=== PATIENT | female | born 1985 | race Caucasian/White ===

== ENCOUNTER 2018-06-11 14:33 | Emergency (ER) | payer BC, SELFPAY ==
[2018-06-11 14:55] VITALS: BP 154/94; PULSE 84; RESP 15; TEMP 36.9; O2SAT 100; BMI 37.6
--- NOTE | 2018-06-11 15:10 | PC.NURSE ---
Has a history of PIH with this last . Pt was induced on 37wk EGA due to PIH and now post day 9. Pt has no hx of HTN prepregnancy or was on medication. Pt reports some YU, tingling on fingers/hands, denies vision change, N-V, abd pain.
[2018-06-11 15:31] VITALS: BP 148/81; PULSE 87; RESP 18; O2SAT 97
--- NOTE | 2018-06-11 15:36 | ED_ITS ---
HPI - General Adult General Chief complaint: Hypertension Stated complaint: GESTESTIONAL HYPERTENTION SYMPTOMS Time Seen by Provider: 06/11/18 15:25 Source: patient Mode of arrival: ambulatory Limitations: no limitations History of Present Illness HPI narrative: patient is a 32-year-old female who presents 6 days with elevated blood pressure. She says that she was induced at 37 weeks for elevated blood pressure. His she had an uncomplicated delivery. and she says her blood pressure was slowly coming back down. However she was taking it at home and monitoring only when she was symptomatic and it seems to be elevating. She feels little dizzy lightheaded numbness and tingling in her hands. No chest pain or shortness of breath no abdominal pain. Related Data Allergies Allergy/AdvReac Type Severity Reaction Status Date / Time No Known Drug Allergies Allergy Verified 06/11/18 14:55 Review of Systems Review of Systems ROS Unobtainable: All systems reviewed & are unremarkable except as noted in HPI and below Constitutional Denies chills, Denies fever(s), Denies lethargy and Denies weakness Cardiovascular Denies chest pain, Denies irregular heart rhythm, Reports lightheadedness, Denies palpitations, Denies dyspnea, Denies dyspnea on exertion and Denies orthopnea Respiratory Denies cough, Denies dyspnea, Denies dyspnea on exertion and Denies wheezing Gastrointestinal Gastrointestinal: Denies abdominal pain, Denies change in bowel habits, Denies diarrhea, Denies nausea and Denies vomiting Genitourinary Denies hematuria, Denies flank pain, Denies urinary incontinence and Denies urinary urgency Musculoskeletal Denies back pain, Denies muscle weakness, Denies numbness and Denies tingling Integumentary/Breasts Denies pruritus, Denies erythema, Denies rash and Denies wounds Neurologic Denies numbness, Denies tingling and Denies weakness Endocrine Denies palpitations Allergic/Immunologic Denies wheezing PFSH Social History Smoking Status: Unknown if ever smoked Social History Smoking Status: Unknown if ever smoked Exam Initial Vital Signs Initial Vital Signs: Vital Signs Temperature 98.4 F 06/11/18 14:55 Pulse Rate 84 06/11/18 14:55 Respiratory Rate 15 06/11/18 14:55 Blood Pressure 154/94 H 06/11/18 14:55 Pulse Oximetry 100 06/11/18 14:55 GENERAL: well-appearing female no acute distress HEENT: Head atraumatic,EOMI, pupils reactive, CARDIOVASCULAR: Regular rate and rhythm without murmurs, rubs or gallops. RESPIRATORY: Breath sounds equal bilaterally, no wheezes rales or rhonchi. ABDOMEN: Soft, nontender. Normoactive bowel sounds all 4 quadrants. No guarding or rebound. EXTREMITIES: Normal range of motion, no clubbing or edema. Neurovascularly intact NEUROLOGICAL: Alert and oriented x4.Normal gait and speech. Cranial nerves II through XII grossly intact. SKIN: Warm, dry, no laceration, no petechiae, no rashes or lesions. Course Orders Ordered: Discontinued Medications Sodium Chloride (Normal Saline 0.9%) 1,000 mls @ 1,000 mls/hr IV CONT HANDY Last Infusion: 06/11/18 17: Dose: 0 mls/hr Admin: 06/11/18 15:50 Dose: 1,000 mls/hr Vital Signs - 8 hr 06/11/18 14:55 06/11/18 15:31 06/11/18 16:00 Temperature 98.4 F Pulse Rate 84 87 69 Respiratory Rate 15 18 15 Blood Pressure 154/94 H Blood Pressure [Right Arm] 148/81 H 142/78 H Pulse Oximetry 100 97 97 06/11/18 16:30 06/11/18 17:30 Temperature Pulse Rate 77 80 Respiratory Rate 16 15 Blood Pressure Blood Pressure [Right Arm] 124/68 132/79 Pulse Oximetry 97 99 Medical Decision Making Lab Data Lab results reviewed: Yes I reviewed the patient's lab results. Result diagrams: 06/11/18 15:53 06/11/18 15:53 Lab Results 06/11/18 06/11/18 06/11/18 Range/Units 15:01 15:53 15:53 WBC 6.3 (4.5-11.0) X10^3/uL RBC 4.00 (4.0-5.2) X10^6/uL Hgb 11.4 L (12.0-16.0) g/dL Hct 35.0 L (36-46) % MCV 87.5 (80-100) fL MCH 28.6 (26-34) PG MCHC 32.7 (30-36) % RDW 13.1 (11.6-14.8) % Plt Count 196 (150-400) X10^3/uL Neut % (Auto) 66.5 (50-75) % Lymph % (Auto) 23.4 L (25-40) % [place] % (Auto) 6.3 (3-14) % Eos % (Auto) 3.1 (2-4) % Baso % (Auto) 0.7 (0-2) % Neut # (Auto) 4200 (3781-3758) /uL Lymph # (Auto) 1500 (4733-3114) /uL [place] # (Auto) 400 (0-900) /uL Eos # (Auto) 200 (0-450) /uL Baso # (Auto) 0 (0-100) /uL Sodium 141 (137-145) mmol/L Potassium 3.6 (3.4-5.1) mmol/L Chloride 105 (98-107) mmol/L Carbon Dioxide 24 (22-32) mmol/L BUN 11 (7-17) mg/dL Creatinine 0.80 (0.52-1.04) mg/dL Estimated GFR > 60.0 (>60) mL/min BUN/Creatinine Ratio 13.8 (6-22) Glucose 88 (70-100) mg/dL Calcium 9.2 (8.4-10.2) mg/dL Total Bilirubin 0.3 (0.2-1.3) mg/dL AST 28 (14-36) IU/L ALT 32 (9-52) IU/L Alkaline Phosphatase 91 (38-126) U/L Total Protein 7.7 (6.3-8.2) g/dL Albumin 4.3 (3.5-5.0) g/dL Globulin 3.4 (1.7-4.1) g/dL Albumin/Globulin Ratio 1.3 (1.0-2.8) Lipase 85 (23-300) U/L Urine Color Yellow Urine Appearance Clear Urine pH 6.5 (4.5-8.0) Ur Specific [place] <1.005 (1.000-1.035) Urine Protein Negative (Negative) Urine Glucose (UA) Negative (Negative) g/dL Urine Ketones Negative (NEGATIVE) Urine Occult Blood 2+ H (Negative) Urine Nitrate Negative (Negative) Urine Bilirubin Negative (NEGATIVE) Urine Urobilinogen Normal (0.2) E.U./dL Ur Leukocyte Esterase Negative (NEGATIVE) Urine RBC 0-1/hpf (0-5/HPF) Urine WBC None seen (0-5/HPF) Urine Bacteria None seen (None) Ur Culture Indicated? Cult not indicated Urine Dip Bedside Urine Glucose Negative Bedside Urine Bilirubin - Negative Bedside Urine Ketone - Negative Urine Specific [place] 1.015 Bedside Urine Occult Blood ++ Bedside Urine pH 6.0 Bedside Urine Protein - Negative Bedside Urine Urobilinogen - Negative Bedside Urine Nitrite - Negative Bedside Urine Leukocytes - Negative Esterase Point of care testing: Urine Dip Bedside Urine Glucose Negative Bedside Urine Bilirubin - Negative Bedside Urine Ketone - Negative Urine Specific [place] 1.015 Bedside Urine Occult Blood ++ Bedside Urine pH 6.0 Bedside Urine Protein - Negative Bedside Urine Urobilinogen - Negative Bedside Urine Nitrite - Negative Bedside Urine Leukocytes - Negative Esterase ECG Data Attestation: I personally reviewed and interpreted this ECG as follows: Prior ECG tracings: not available for review Interpretation: Normal sinus rhythm rate [address] changes no T-wave inversions [place] interval 152 MDM Narrative Medical decision making narrative: patient's blood pressure has decreased while in the ED. At this time she is asymptomatic with an acceptable blood pressure recommend following it and her monitoring at home with home BP cuff. I discussed this with her and how to take it and when to take it. At this time appropriate for discharge. Discharge Plan Departure Patient Disposition: Home Clinical Impression: Feared complaint without diagnosis Discharge Date/Time: 06/11/18 17:35 Interventions: ED Discharge Assessment Last Done: 06/11/18 17:43 Instructions: DI for High Blood Pressure Activity Restrictions/Additional Instructions: *You have been diagnosed with elevated blood pressure has resolved while in the ER *What to do: take blood pressure once a day same time every day. monitor in ride it down. If blood pressure continues to be elevated over 140/90 then return to ED *Continue to take medications as directed *Follow up with your primary care provider in 2-3 days *Return to ER if you should have chest pain lightheadedness headache persistently elevated blood pressure or any new, worsening or concerning symptoms
[2018-06-11] MEDS: SODIUM CHLORIDE 0.9% 1,000 ML 1000 ML IV (15:50)
[2018-06-11 16:00] VITALS: BP 142/78; PULSE 69; RESP 15; O2SAT 97
[2018-06-11 16:00] LABS: Add Manual Diff / Slide Review NO; Basophils Absolute Auto 0 /uL (0-100); Basophils Percent Auto 0.7 % (0-2); Eosinophils Absolute Auto 200 /uL (0-450); Eosinophils Percent Auto 3.1 % (2-4); Hemoglobin 11.4 g/dL (12.0-16.0); Lymphocytes Absolute Auto 1500 /uL (1100-4500); Lymphocytes Percent Auto 23.4 % (25-40); Mean Corpuscular HGB Conc 32.7 % (30-36); Mean Corpuscular Hemoglobin 28.6 PG (26-34); Mean Corpuscular Volume 87.5 fL (80-100); Monocytes Absolute Auto 400 /uL (0-900); Monocytes Percent Auto 6.3 % (3-14); Neutrophils Absolute Auto 4200 /uL (1500-7000); Neutrophils Percent Auto 66.5 % (50-75); Platelet Count 196 X10^3/uL (150-400); Red Cell Distribution Width 13.1 % (11.6-14.8); White Blood Cell Count 6.3 X10^3/uL (4.5-11.0)
[2018-06-11 16:11] LABS: Alanine Aminotransferase 32 IU/L (9-52); Albumin 4.3 g/dL (3.5-5.0); Albumin Globulin Ratio 1.3 (1.0-2.8); Alkaline Phosphatase 91 U/L (38-126); Aspartate Aminotransferase 28 IU/L (14-36); BUN Creatinine Ratio 13.8 (6-22); Bilirubin Total 0.3 mg/dL (0.2-1.3); Blood Urea Nitrogen 11 mg/dL (7-17); Calcium 9.2 mg/dL (8.4-10.2); Carbon Dioxide 24 mmol/L (22-32); Chloride 105 mmol/L (98-107); Estimated Glomerular Filt Rate > 60.0 mL/min (>60); Globulin 3.4 g/dL (1.7-4.1); Glucose 88 mg/dL (70-100); HEMOLYSIS < 15 (0-50); Lipase 85 U/L (23-300); Potassium 3.6 mmol/L (3.4-5.1); Sodium 141 mmol/L (137-145); Total Protein 7.7 g/dL (6.3-8.2)
[2018-06-11 16:30] VITALS: BP 124/68; PULSE 77; RESP 16; O2SAT 97
[2018-06-11 17:06] LABS: Bacteria Urine None Seen; WBC Urine None Seen (0-5/HPF)
[2018-06-11 17:16] LABS: Appearance Urine UA Clear; Color Urine UA YELLOW; Glucose Urine UA NEGATIVE (Negative); Ketones Urine UA NEGATIVE (NEGATIVE); Protein Urine UA Negative (Negative); Specific Gravity Urine UA <1.005 (1.000-1.035); pH Urine UA 6.5 (4.5-8.0)
[2018-06-11 17:17] LABS: Bilirubin Urine UA Negative (NEGATIVE); Culture Indicated Urine Cult Not Indicated; Leukocyte Esterase Urine UA NEGATIVE (NEGATIVE); Nitrite Urine UA NEGATIVE (Negative); Occult Blood Urine UA 2+ (Negative); RBC Urine 0-1/HPF (0-5/HPF); Urobilinogen Urine UA Normal E.U./dL (0.2)
[2018-06-11 17:30] VITALS: BP 132/79; PULSE 80; RESP 15; O2SAT 99
== END 2018-06-11 17:35 | disposition home or self-care (01) ==
PROVIDERS: Emergency Provider Emergency Medicine
DX: Z71.1 Person with feared health complaint in whom no diagnosis is made (principal)
CPT/HCPCS: 36591; 80053; 81001; 81003; 83690; 85025; 93005; 93010; 96360; 99283; 99284

== ENCOUNTER → 2019-04-14 09:28 | Outpatient (CLI) | payer BC, SELFPAY ==
[2019-04-14 10:11] LABS: Influenza A - CEPHEID Flu A NEGATIVE (NEGATIVE); Influenza B - CEPHEID Flu B POSITIVE (NEGATIVE)
== END ==
PROVIDERS: Visit Provider Nurse Practitioner
DX: R68.89 Other general symptoms and signs (principal)
CPT/HCPCS: 87502

== ENCOUNTER → 2019-04-14 10:25 | Outpatient (CLI) | payer BC, SELFPAY ==
--- NOTE | 2019-04-14 10:26 | DI.RAD.S_ITS ---
PROCEDURE: XR CHEST 2V INDICATIONS: Right-sided coarse breath sounds, fever, r/o pneumonia TECHNIQUE: 2 views of the chest were acquired. COMPARISON: None. FINDINGS: Surgical changes and devices: None. Lungs and pleura: No pleural effusions or pneumothoraces. There are increased right perihilar and right basilar hazy pulmonary opacities. Mediastinum: Mediastinal contours are normal. Heart size is normal. Bones and chest wall: No suspicious bony abnormalities. Soft tissues appear unremarkable. IMPRESSION: Increased hazy right perihilar and right basilar pulmonary opacities concerning for pneumonia, aspiration, or atelectasis in the appropriate clinical setting. Recommend followup chest radiographs to ensure resolution. Dictated by: Ricci Hernandez M.D. on 04/14/2019 at 13:24 Approved by: Ricci Hernandez M.D. on 04/14/2019 at 13:35
== END ==
PROVIDERS: Visit Provider Nurse Practitioner
DX: R05 Cough (principal); R50.9 Fever, unspecified; R68.89 Other general symptoms and signs
CPT/HCPCS: 71046; 87502

== ENCOUNTER → 2020-06-17 07:34 | Outpatient (CLI) | payer BC, SELFPAY ==
--- NOTE | 2020-06-17 | DI.US.S_ITS ---
PROCEDURE: US PELVIC COMPLETE INDICATIONS: Irregular menstruation, unspecified TECHNIQUE: Real-time scanning was performed of the pelvic organs, with image documentation. Additional endovaginal scanning was necessary due to incomplete visualization of the adnexal and endometrial structures by transabdominal scanning. COMPARISON: None. FINDINGS: Uterus: Uterus is retroverted and normal in size at 7.4 x 6.0 x 5.8 cm. The endometrium measures 13.8 mm in combined thickness. Ovaries: Right ovary measures 4.5 x 3.5 x 2.0 cm and there is a complex cyst measuring 1.5 x 1.7 x 1.4 cm. Normal left ovary measuring 4.7 x 2.3 x 1.9 cm. Other: No pathologic free abdominal or pelvic fluid. IMPRESSION: 1. No source for menorrhagia identified. 2. Complex right ovarian cyst suggestive of regressing physiologic cyst. Dictated by: Lan Martinez [facility] Interpreted: Darby Cassidy MD on 06/17/2020 at 9:17 Approved by: Darby Cassidy M.D. on 06/17/2020 at 11:16
== END ==
PROVIDERS: Referring Provider Physician Assistant; Visit Provider Physician Assistant
DX: N92.6 Irregular menstruation, unspecified (principal); N83.291 Other ovarian cyst, right side
CPT/HCPCS: 76830; 76856

== ENCOUNTER → 2021-05-28 17:05 | Outpatient (CLI) | payer BC, SELFPAY | PROVIDERS: Referring Provider Obstetrics & Gynecology; Visit Provider Obstetrics & Gynecology | DX: O20.9 Hemorrhage in early pregnancy, unspecified (principal) | CPT/HCPCS: 36415; 84702 ==

== ENCOUNTER → 2021-05-30 09:16 | Outpatient (CLI) | payer BC, SELFPAY ==
[2021-05-30 10:00] LABS: HCG Quantitative /Beta subunit 197.8 mIU/mL
== END ==
PROVIDERS: PCP Physician Assistant; Referring Provider Obstetrics & Gynecology; Visit Provider Obstetrics & Gynecology
DX: O20.9 Hemorrhage in early pregnancy, unspecified (principal)
CPT/HCPCS: 36415; 84702

== ENCOUNTER → 2021-07-25 09:41 | Outpatient (CLI) | payer BC, SELFPAY ==
[2021-07-25 11:38] LABS: HCG Quantitative /Beta subunit 34445 mIU/mL
== END ==
PROVIDERS: PCP Physician Assistant; Referring Provider Obstetrics & Gynecology; Visit Provider Obstetrics & Gynecology
DX: N91.2 Amenorrhea, unspecified (principal)
CPT/HCPCS: 36415; 84702

== ENCOUNTER → 2021-07-28 12:29 | Outpatient (CLI) | payer BC, SELFPAY ==
[2021-07-28 15:18] LABS: HCG Quantitative /Beta subunit 47324 mIU/mL
== END ==
PROVIDERS: PCP Physician Assistant; Referring Provider Obstetrics & Gynecology; Visit Provider Obstetrics & Gynecology
DX: N91.2 Amenorrhea, unspecified (principal)
CPT/HCPCS: 36415; 84702

== ENCOUNTER → 2021-08-25 17:46 | Outpatient (CLI) | payer BC, SELFPAY ==
[2021-08-25 18:20] LABS: Add Manual Diff / Slide Review NO; Basophils Absolute Auto 0 /uL (0-100); Basophils Percent Auto 0.5 % (0-2); Eosinophils Absolute Auto 300 /uL (0-450); Hematocrit 35.3 % (36-46); Hemoglobin 12.3 g/dL (12.0-16.0); Lymphocytes Absolute Auto 2400 /uL (1100-4500); Lymphocytes Percent Auto 28.1 % (25-40); Mean Corpuscular HGB Conc 34.9 % (30-36); Mean Corpuscular Hemoglobin 29.9 PG (26-34); Mean Corpuscular Volume 85.9 fL (80-100); Monocytes Absolute Auto 600 /uL (0-900); Monocytes Percent Auto 7.3 % (3-14); Neutrophils Absolute Auto 5100 /uL (1500-7000); Neutrophils Percent Auto 61.1 % (50-75); Platelet Count 167 X10^3/uL (150-400); Red Blood Cell Count 4.12 X10^6/uL (4.0-5.2); Red Cell Distribution Width 12.9 % (11.6-14.8); White Blood Cell Count 8.4 X10^3/uL (4.5-11.0)
[2021-08-25 18:36] LABS: Alanine Aminotransferase 34 IU/L (<35); Aspartate Aminotransferase 30 IU/L (14-36); BUN Creatinine Ratio 20.8 (6-22); Blood Urea Nitrogen 10 mg/dL (7-17); Estimated Glomerular Filt Rate > 60 mL/min (>60); Uric Acid 3.7 mg/dL (2.5-6.2)
[2021-08-25 21:28] LABS: Hepatitis B Surface Antigen NEGATIVE s/c (NEGATIVE)
[2021-08-25 21:35] LABS: HIV 1 & 2 Ab/Ag 4th Gen Combo NEGATIVE (NEGATIVE); Hep C Virus Ab w/Reflex Quant NEGATIVE s/c (NEGATIVE)
[2021-08-26 04:11] LABS: RPR Screen Non Reactive (Non Reactive)
[2021-08-26 07:36] LABS: Varicella IgG Antibody <135 index (Immune >165)
== END ==
PROVIDERS: PCP Physician Assistant; Referring Provider Obstetrics & Gynecology; Visit Provider Obstetrics & Gynecology
DX: Z34.81 Encounter for supervision of other normal pregnancy, first trimester (principal); Z3A.12 12 weeks gestation of pregnancy
CPT/HCPCS: 36415; 80055; 82565; 84450; 84460; 84520; 84550; 86787; 86803; 86850; 86900; 86901; 87389

== ENCOUNTER → 2021-10-01 15:45 | Outpatient (CLI) | payer BC, SELFPAY ==
[2021-10-01 20:02] LABS: Appearance Urine UA CLEAR; Bilirubin Urine UA NEGATIVE (NEGATIVE); Color Urine UA YELLOW; Glucose Urine UA NEGATIVE (Negative); Ketones Urine UA NEGATIVE (NEGATIVE); Leukocyte Esterase Urine UA NEGATIVE (NEGATIVE); Nitrite Urine UA NEGATIVE (Negative); Occult Blood Urine UA NEGATIVE (Negative); Protein Urine UA NEGATIVE (Negative); Specific Gravity Urine UA <=1.005 (1.000-1.035); Urobilinogen Urine UA 0.2 E.U./dL (0.2)
[2021-10-01 20:13] LABS: pH Urine UA 6.5 (4.5-8.0)
[2021-10-01 23:57] LABS: Creatinine Urine Random 29.1 mg/dL; Protein (Total) Urine Random 10 mg/dL (0-12); Protein Creatinine Ratio Urine 0.34 GRAM/24H
== END ==
PROVIDERS: PCP Physician Assistant; Visit Provider Obstetrics & Gynecology
DX: Z34.81 Encounter for supervision of other normal pregnancy, first trimester (principal); Z3A.12 12 weeks gestation of pregnancy
CPT/HCPCS: 81003; 82570; 84156; 87086

== ENCOUNTER → 2021-10-22 13:56 | Outpatient (CLI) | payer BC, SELFPAY ==
--- NOTE | 2021-10-22 13:57 | DI.US.S_ITS ---
PROCEDURE: US OB >= 14 WEEKS FETUS INDICATIONS: anatomy scan OUTSIDE/PRIOR DATING DATA: Last menstrual period (LMP): 05/30/2021 LMP-based estimated date of delivery (OPAL): 03/06/2022. First dating scan (date and location): 08/25/2021. Estimated date of delivery (OPAL) from first dating scan: 03/11/2022. The calculations are made using the working OPAL of 03/06/2022. TECHNIQUE: Real-time scanning was performed of the fetus, with image documentation and biometric measurements. COMPARISON: [facility], , US OB >= 14 WEEKS FETUS, 10/01/2021, 16:07. FINDINGS: General: A single living intrauterine gestation is present. Presentation: Breech. Placenta: Placental position is anterior , without previa. Amniotic fluid index: 7.1 cm, normal range is 5-24 cm. Single deepest vertical pocket is 2.4 cm. heart rate: 149 beats per minute. Maternal cervical canal: 4.4 cm long. Normal lower limit is 2.5 cm. biometrics: Biparietal diameter: 19 weeks 5 days Head circumference: 19 weeks 5 days Abdominal circumference: 20 weeks 2 days Femur length: 20 weeks 3 days Clinically estimated gestational age: 20 weeks 5 days Composite gestational age from present scan: 20 weeks 0 days Estimated weight and percentile: 344 g; 24th percentile Anatomic survey: Neuro: Ventricles are non-dilated at less than 10 mm. Cisterna magna is normal at 3-11 mm. Cerebellum is normal in size and morphology. Nuchal skin fold: Normal at less than 6 mm between 14-21 weeks gestational age. Face: Not well seen. Spine: Not well seen. Heart: Not well seen. Diaphragm: Diaphragm is intact. Stomach: Not well seen. Kidneys: Not well seen. Cord: Not well seen. Bladder: Normal in size. Extremities: All 4 extremities identified. IMPRESSION: 1. Single living IUP redemonstrated and interval growth is normal. 2. Limited anatomic survey as above. Follow-up recommended. 3. Amniotic fluid index less than the 5th percentile for age. Recommend attention on follow-up. We strive to produce accurate, complete, and clear reports of imaging services. To assist us in improving patient care, this report was composed using standard report templates and voice recognition software. Therefore, it may contain abnormal punctuation, insertions and/or omissions. Occasional wrong-word or sound-alike substitutions may occur. Though we review the report and make efforts to correct it, we do recommend that the report be read carefully in proper context to recognize any text inaccuracies. Dictated by: Lan BASHIR Interpreted: Max Ramírez MD on 10/23/2021 at 16:28 Transcribed by: ARACELI on 10/23/2021 at 16:31 Approved by: Max Ramírez M.D. on 10/23/2021 at 17:48
== END ==
PROVIDERS: PCP Physician Assistant; Referring Provider Obstetrics & Gynecology; Visit Provider Obstetrics & Gynecology
DX: Z34.82 Encounter for supervision of other normal pregnancy, second trimester (principal); Z3A.20 20 weeks gestation of pregnancy
CPT/HCPCS: 76811

== ENCOUNTER 2021-10-24 16:26 | Inpatient (IN) | payer BC, SELFPAY ==
--- NOTE | 2021-10-24 17:46 | DI.US.S_ITS ---
PROCEDURE: US OB LIMITED INDICATIONS: PPROM OUTSIDE/PRIOR DATING DATA: Last menstrual period (LMP): 05/30/2021. LMP-based estimated date of delivery (OPAL): 03/06/2022. First dating scan (date and location): 08/25/2021. Estimated date of delivery (OPAL) from first dating scan: 03/11/2022. The calculations are made using the ultrasound OPAL of 03/06/2022. TECHNIQUE: Real-time scanning was performed of the fetus, with image documentation. COMPARISON: None. FINDINGS: A single living intrauterine gestation is present. Presentation: Spine presenting posteriorly. Placenta: Placental position is anterior, without previa. Amniotic fluid index: 6.9 cm, normal range is 5-24 cm. heart rate: 152 beats per minute. Maternal cervical canal: The cervix is opened with U shaped funneling. The fetus is within the lower uterine segment with the spine presenting posteriorly and the head to the maternal right. IMPRESSION: Premature rupture of membranes with U shaped funneling of the cervix and no amniotic fluid. The fetus is in the lower uterine segment. Dictated by: Edgar Duvall M.D. on 10/25/2021 at 10:55 Approved by: Edgar Duvall M.D. on 10/25/2021 at 11:00
--- NOTE | 2021-10-24 17:52 | PM.OBHP.IH.1 ---
OB HPI Date/Time Date of admission: 10/24/21 Date Patient Seen: 10/24/21 Time Patient Seen: 17:53 History of Present Condition Chief complaint: OPAL Calculator Estimated Delivery Date Method Current WG Current Estimate 03/06/22 LMP (Certain) 21w 0d Estimated Gestational Age (weeks): 21+0 : 7 Para: 3 Narrative: This patient is a 36yo @21+0 by 12 week US concordant with LMP, presenting today after three trickles of mucus to clear fluid throughout the day today. The patient reports that she stood and had clear fluid that soaked a small area around a pantiliner, and presented to L&D after the third such event. She denies vaginal bleeding, cramping, fevers, chills, or nausea. She has diarrhea, but has had this intermittently throughout the . She had an anatomy scan two days ago, with an ANY of 7.1cm noted which is <5%, a growth of 344g at the 24th percentile, and limited other views due to positioning. The patient had declined aneuploidy screening earlier in the . Her obstetric history is significant for gestational hypertension in her last with IOL at 37 weeks, and persistent hypertension. She has a history of three first trimester SABs. 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 She has a history of PIH in her last two pregnancies that remained as cHTN after her last, for which she takes 50mg metoprolol in the AM and 25mg in the PM. She has a history of psoriatic arthritis for which she takes etanercept weekly. She denies any other significant medical, surgical, family, or social history. care: good care Dating criteria OB: LMP confirmed by 1st trimester US Ultrasounds: abnormal US findings (poor view due to positioning and low fluid) Obstetrical complications: none Medical complications OB: none Preadmission Labs Last OB Lab Results: Blood Type B Positive 08/25/21 17:51 Antibody Screen Negative 08/25/21 17:51 Hematocrit 35.3 % (36-46) L 08/25/21 17:51 Hemoglobin 12.3 g/dL (12.0-16.0) 08/25/21 17:51 Hepatitis B Surface Antigen Negative s/c (NEGATIVE) 08/25/21 17:51 Hepatitis C Antibody Negative s/c (NEGATIVE) 08/25/21 17:51 Rubella Antibody 11.0 IU/mL (>15) L 08/25/21 17:51 Varicella-Zoster IgG Antibody <135 index (Immune >165) L 08/25/21 17:51 -: Urine: negative External Labs -: Urine: negative Prior (ies) Past Pregnancies Del. Date GA/Weeks Labor Lgth Wt Sex Route Outcome Anesthesia Place Delv Breastfeed Preg Comp Name 05/22/13 40 9 9 lb 6 oz Female vaginal live - full term [place] 1 year none Carabella 01/03/14 9 spontaneous 04/03/15 4 spontaneous 01/29/16 42 6 8 lb 12 oz Female vaginal live - full term [place] Miranda 1 year none Ronald 06/05/18 37 2 6 lb 9 oz Female vaginal live - full term [place] Miranda 8 months gestational hypertension Adiana 05/30/21 6 spontaneous Evaluation Evaluation Baseline heart rate: 157 Comments: VS: 134/80, HR 98, T 98.2 [facility] Medical History (Updated 10/05/21 @ 17:54 by Faustina Kelley MD) Hypertension PPD screening test (~2015) Psoriatic arthritis Surgical History (Updated 09/24/21 @ 22:27 by Zoe [place]) Anesthesia History of ankle surgery (~1997) [place] teeth extracted Family History (Updated 08/21/21 @ 13:29 by Sarah Jorge RN) Mother Hypertension Hyperlipidemia Diabetes mellitus Father Hypertension Hyperlipidemia Grandmother Hypertension CVA (cerebral vascular accident) Grandfather Pancreatitis Social History marital status: number of children: 3 household members: spouse and children lives independently: Yes housing: house pets and animals: No education level: college ([employer] degree) occupational status: employed current occupational exposures/hazards: Yes (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 6 months ago seatbelt use: always water heater temp set < 120 deg: No working smoke detector in home: Yes fire extinguisher in home: Yes carbon monox detector in home: Yes firearms in home: No do you feel safe at home: Yes Smoking Status: Never smoker second hand exposure: No alcohol intake: former substance use type: does not use during the past year weight has: other (Major weight changes up and down with medication changes) well-balanced diet: daily or most days daily servings fruits/ve-4 caffeine: Yes Type(s) of exercise: none Meds Home Medications and Allergies Home Medications Medication Instructions Recorded Confirmed Type etanercept 50 mg/mL (1 mL) 50 mg SUBCUT QWEEK 08/21/21 10/01/21 History subcutaneous syringe (Enbrel) prenat.vits,bakari,uey-sefe-wohvh 1 tab PO DAILY 08/21/21 10/01/21 History metoprolol tartrate 25 mg tablet See Rx Instructions PO .COMPLEX 10/06/21 Rx #90 tabs Allergies Allergy/AdvReac Type Severity Reaction Status Date / Time No Known Drug Allergies Allergy Verified 10/01/21 15:36 Review of Systems Constitutional Constitutional: Reports as per HPI Cardiovascular Cardiovascular: Reports system reviewed and no additional complaints, except as documented Respiratory Respiratory: Reports system reviewed and no additional complaints, except as documented Gastrointestinal Gastrointestinal: Reports system reviewed and no additional complaints, except as documented Genitourinary Genitourinary: Reports system reviewed and no additional complaints, except as documented Neurologic Neurologic: Reports system reviewed and no additional complaints, except as documented OB Exam Narrative Exam Narrative: Resting in bed, anxious but not physically uncomfortable. Extremities Lower extremity: Yes normal to inspection GI Palpation: Yes soft and No tender External Female Exam: Yes normal external appearance Other: Sterile speculum exam performed. No pooling with just scant mucus in the vault and the speculum, but visible membranes at a cervix dilated approximately 3 cm. No bleeding. No visible presenting part. Bedside ultrasound report: ANY 6.9, membranes visible in cervix with unclear cervical length. Assessment and Plan Assessment and Plan Assessment and Plan narrative: This patient is admitted with cervical insufficiency at 21 weeks. She has no signs of infection, and though an amnisure was possibly faintly positive, the rest of her exam is not consistent with rupture. We discussed that she is previable, and discussed options at length. We discussed the high odds of occult infection or abruption, and discussed that she could break her water at any time and deliver. We discussed the options of induction of labor vs. referral for MFM consultation for possible rescue cerclage. We discussed that this has potentially low odds of success, and that she could still experience miscarriage or periviable or very early delivery with lifelong sequelae. The patient and her partner vocalized understanding of all of the above, and after all questions were answered, opted for transfer to [facility] for an MFM consult for discussion of options. We discussed that they would repeat our evaluation for rupture and labor, with an amniocentesis if she remains stable to assess for signs of infection. We discussed that if these tests are reassuring, then the MFMs will discuss the risks and benefits of a cerclage with she and her . - Transfer to [facility] antepartum service, with Dr. Thrasher accepting - Transfer via BLS ambulence Time Spent with Patient Total time spent with greater than 50% in coordination of care (as documented) at patient's floor/unit and/or counseling patient:: Greater than 35 minutes
[2021-10-24 18:57] LABS: Add Manual Diff / Slide Review NO; Basophils Absolute Auto 0 /uL (0-100); Basophils Percent Auto 0.3 % (0-2); Eosinophils Absolute Auto 200 /uL (0-450); Eosinophils Percent Auto 1.9 % (2-4); Hematocrit 33.2 % (36-46); Hemoglobin 11.6 g/dL (12.0-16.0); Lymphocytes Absolute Auto 2100 /uL (1100-4500); Lymphocytes Percent Auto 24.5 % (25-40); Mean Corpuscular HGB Conc 34.8 % (30-36); Mean Corpuscular Hemoglobin 30.7 PG (26-34); Mean Corpuscular Volume 88.4 fL (80-100); Monocytes Absolute Auto 700 /uL (0-900); Neutrophils Absolute Auto 5600 /uL (1500-7000); Neutrophils Percent Auto 65.3 % (50-75); Platelet Count 158 X10^3/uL (150-400); Red Blood Cell Count 3.76 X10^6/uL (4.0-5.2); Red Cell Distribution Width 12.6 % (11.6-14.8); White Blood Cell Count 8.6 X10^3/uL (4.5-11.0)
[2021-10-24 19:15] LABS: COVID19 -Nasal RAPID Negative (Negative)
[2021-10-24 19:47] LABS: Alanine Aminotransferase 20 IU/L (<35); Albumin 4.3 g/dL (3.5-5.0); Albumin Globulin Ratio 1.3 (1.0-2.8); Alkaline Phosphatase 56 U/L (38-126); Aspartate Aminotransferase 23 IU/L (14-36); BUN Creatinine Ratio 10.9 (6-22); Bilirubin Total 0.3 mg/dL (0.2-1.3); Blood Urea Nitrogen 6 mg/dL (7-17); Calcium 9.2 mg/dL (8.4-10.2); Carbon Dioxide 21 mmol/L (22-32); Chloride 105 mmol/L (98-107); Estimated Glomerular Filt Rate > 60 mL/min (>60); Globulin 3.4 g/dL (1.7-4.1); Glucose 83 mg/dL (70-100); HEMOLYSIS < 15 (0-50); Lactate Dehydrogenase 381 U/L (313-618); Potassium 3.6 mmol/L (3.4-5.1); Sodium 136 mmol/L (137-145); Total Protein 7.7 g/dL (6.3-8.2); Uric Acid 4.6 mg/dL (2.5-6.2)
[2021-10-24 20:00] LABS: Appearance Urine UA CLEAR; Bilirubin Urine UA NEGATIVE (NEGATIVE); Color Urine UA YELLOW; Glucose Urine UA NEGATIVE (Negative); Ketones Urine UA NEGATIVE (NEGATIVE); Leukocyte Esterase Urine UA NEGATIVE (NEGATIVE); Nitrite Urine UA NEGATIVE (Negative); Occult Blood Urine UA NEGATIVE (Negative); Protein Urine UA NEGATIVE (Negative); Specific Gravity Urine UA <=1.005 (1.000-1.035); Urobilinogen Urine UA 0.2 E.U./dL (0.2)
[2021-10-24 20:08] LABS: Creatinine Urine Random 41.9 mg/dL; Protein (Total) Urine Random 9 mg/dL (0-12); Protein Creatinine Ratio Urine 0.21 GRAM/24H
[2021-10-24 20:18] LABS: Bacteria Urine None Seen; Culture Indicated Urine Cult Not Indicated; RBC Urine 0-1/HPF (0-5/HPF); WBC Urine 0-1/HPF (0-5/HPF); pH Urine UA 6.5 (4.5-8.0)
== END 2021-10-24 22:45 | disposition short-term general hospital (02) | DRG 832 ==
LOC: LABOR 20:27
PROVIDERS: Obstetrics & Gynecology; Admitting Provider Obstetrics & Gynecology; PCP Physician Assistant; Referring Provider Obstetrics & Gynecology; Visit Provider Obstetrics & Gynecology
DX: O34.32 Maternal care for cervical incompetence, second trimester (principal); O10.912 Unspecified pre-existing hypertension complicating pregnancy, second trimester; Z3A.21 21 weeks gestation of pregnancy; Z20.822 Contact with and (suspected) exposure to COVID-19
CPT/HCPCS: 76811; 76815; 80053; 81001; 82570; 83615; 84112; 84156; 84550; 85025; 86850; 86900; 86901; 87635; C9803; G0379

== ENCOUNTER 2021-11-28 22:15 | Emergency (ER) | payer BC, SELFPAY ==
[2021-11-28 22:20] VITALS: BP 173/97; PULSE 89; RESP 18; TEMP 36.7; O2SAT 100; BMI 39.0
--- NOTE | 2021-11-28 23:02 | ED_ITS ---
HPI - General Adult General Chief complaint: Urogenital-Female Stated complaint: Lower ABD pain, 5 weeks post Time Seen by Provider: 11/28/21 22:46 Source: patient Mode of arrival: Ambulatory History of Present Illness HPI narrative: 36-year-old with a 20 week loss due to P prom, transfer to [facility] requiring manual extraction of the placenta approximately 5 weeks ago presents with increasing pelvic pain tonight complains of odorous vaginal discharge that is mild and unchanged over the last 5 weeks. She notes that this evening she had some deep pelvic pressure went to the bathroom had a bowel movement and some mild vaginal spotting. She stood up she had severe deep pelvic pain that was unusual and precipitated her visit to the emergency room today. The over the time she has been in the emergency department her pain has somewhat subsided. She describes no fevers, nausea, headaches, chest pain, shortness a breath. She notes that she received a single dose of antibiotics after her delivery but has not had antibiotics since that point. She describes no dysuria, urgency, frequency and describes no flank pain Related Data Home Medications Medication Instructions Recorded Confirmed etanercept 50 mg/mL (1 mL) 50 mg SUBCUT QWEEK 08/21/21 11/04/21 subcutaneous syringe (Enbrel) prenat.vits,bakari,adx-fvja-lzftv 1 tab PO DAILY 08/21/21 11/04/21 metoprolol succinate 25 mg 25 mg PO DAILY 11/04/21 11/04/21 tablet,extended release 24 hr metoprolol succinate 50 mg 50 mg PO DAILY 11/04/21 11/04/21 tablet,extended release 24 hr Previous Rx's Medication Instructions Recorded doxycycline hyclate 100 mg tablet 100 mg PO BID #20 tabs 11/29/21 metronidazole 500 mg tablet 500 mg PO BID #20 tabs 11/29/21 Allergies Allergy/AdvReac Type Severity Reaction Status Date / Time No Known Drug Allergies Allergy Verified 11/04/21 08:33 Review of Systems Review of Systems Narrative: Remainder of complete review of systems is otherwise unremarkable except for that included in the HPI. Patient History Medical History (Updated 11/29/21 @ 01:08 by Ludmila Mendoza MD) Hypertension PPD screening test (~2015) Psoriatic arthritis Surgical History (Updated 09/24/21 @ 22:27 by Zoe Montana) Anesthesia History of ankle surgery (~1997) [place] teeth extracted Family History (Updated 08/21/21 @ 13:29 by Sarah Jorge RN) Mother Hypertension Hyperlipidemia Diabetes mellitus Father Hypertension Hyperlipidemia Grandmother Hypertension CVA (cerebral vascular accident) Grandfather Pancreatitis Social History marital status: number of children: 3 household members: spouse and children lives independently: Yes housing: house pets and animals: No education level: college ([employer] degree) occupational status: employed current occupational exposures/hazards: Yes (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 6 months ago seatbelt use: always water heater temp set < 120 deg: No working smoke detector in home: Yes fire extinguisher in home: Yes carbon monox detector in home: Yes firearms in home: No do you feel safe at home: Yes Smoking Status: Never smoker second hand exposure: No alcohol intake: former substance use type: does not use during the past year weight has: other (Major weight changes up and down with medication changes) well-balanced diet: daily or most days daily servings fruits/ve-4 caffeine: Yes Type(s) of exercise: none Smoking Status: Never smoker alcohol intake frequency: other Substance Use Type: does not use Exam Initial Vital Signs Initial Vital Signs: Vital Signs Temperature 98.0 F 11/28/21 22:20 Pulse Rate 89 11/28/21 22:20 Respiratory Rate 18 11/28/21 22:20 Blood Pressure 173/97 H 11/28/21 22:20 Pulse Oximetry 100 11/28/21 22:20 Oxygen Delivery Method 11/28/21 22:20 General: Healthy appearing, anxious but in no acute distress. Able to give a complete and coherent history. Well-nourished well-developed HEENT: Moist mucous membranes, normal sclera with reactive pupils, Respiratory: Lungs are clear to auscultation, no wheezing no rales no rhonchi. Full and symmetrical air movement Cardiac: Regular rate and rhythm no murmurs no bruits Abdomen: Soft, nontender, good bowel tones, no flank pain Skin: Warm and dry, no rashes Neurologic: Grossly neurologically intact with no obvious asymmetries or abnormalities Extremities: No trauma, well perfused Psych: Cooperative, appropriate insight and affect Bedside transabdominal ultrasound reveals a uterus that is 5 x 6 x 7 cm with no significant endometrial pre she ate. Exam is limited by body habitus, transabdominal views and empty bladder. Course Orders Ordered: ED Orders 11/28/21 22:49 EKG-12 Lead Stat 11/28/21 22:53 Complete Blood Count AUTO DIFF Stat Comprehensive Metabolic Panel Stat Lipase Stat 11/28/21 23:00 Urine Culture Stat Urine Microscopic Stat Discontinued Medications Ceftriaxone Sodium 1,000 mg/ (Sodium Chloride) 100 mls @ 200 mls/hr IV NOW ONE Stop: 11/28/21 23:19 Last Infusion: 11/29/21 00:04 Dose: 0 mls/hr Documented By: Admin: 11/28/21 23:24 Dose: 200 mls/hr Documented By: FEDERICO Vital Signs Vital signs: Vital Signs - 8 hr 11/28/21 22:20 11/28/21 23:35 11/28/21 23:35 Temperature 98.0 F Pulse Rate 89 74 Respiratory Rate 18 Blood Pressure 173/97 H 138/82 Pulse Oximetry 100 98 Oxygen Delivery Method Room Air Room Air Medical Decision Making Lab Data Result diagrams: 11/28/21 22:53 11/28/21 22:53 Labs: Lab Results 11/28/21 11/28/21 11/28/21 Range/Units 22:53 22:53 23:00 WBC 6.0 (4.5-11.0) X10^3/uL RBC 3.82 L (4.0-5.2) X10^6/uL Hgb 11.1 L (12.0-16.0) g/dL Hct 32.8 L (36-46) % MCV 85.8 (80-100) fL MCH 29.0 (26-34) PG MCHC 33.8 (30-36) % RDW 12.5 (11.6-14.8) % Plt Count 165 (150-400) X10^3/uL Neut % (Auto) 52.2 (50-75) % Lymph % (Auto) 34.6 (25-40) % Shannon % (Auto) 7.9 (3-14) % Eos % (Auto) 4.7 H (2-4) % Baso % (Auto) 0.6 (0-2) % Neut # (Auto) 3100 (9613-0872) /uL Lymph # (Auto) 2100 (3298-7527) /uL Shannon # (Auto) 500 (0-900) /uL Eos # (Auto) 300 (0-450) /uL Baso # (Auto) 0 (0-100) /uL Sodium 142 (137-145) mmol/L Potassium 3.7 (3.4-5.1) mmol/L Chloride 105 (98-107) mmol/L Carbon Dioxide 26 (22-32) mmol/L BUN 11 (7-17) mg/dL Creatinine 0.83 (0.52-1.04) mg/dL Estimated GFR > 60 (>60) mL/min BUN/Creatinine Ratio 13.3 (6-22) Glucose 138 H (70-100) mg/dL Calcium 9.0 (8.4-10.2) mg/dL Total Bilirubin 0.3 (0.2-1.3) mg/dL AST 29 (14-36) IU/L ALT 36 H (<35) IU/L Alkaline Phosphatase 65 (38-126) U/L Total Protein 7.5 (6.3-8.2) g/dL Albumin 4.4 (3.5-5.0) g/dL Globulin 3.1 (1.7-4.1) g/dL Albumin/Globulin Ratio 1.4 (1.0-2.8) Lipase 132 (23-300) U/L Urine RBC None seen (0-5/HPF) Urine WBC 1-5/hpf (0-5/HPF) Ur Squamous Epith Cells 1-5 /hpf (0-5/HPF) Urine Bacteria Few (2-10) H (None) Ur Culture Indicated? Specimen cultured Point of Care Testing Test Results Negative Urine Dip Bedside Urine Glucose Negative Bedside Urine Bilirubin - Negative Bedside Urine Ketone - Negative Urine Specific [place] 1.005 Bedside Urine Occult Blood - Negative Bedside Urine pH 6.5 Bedside Urine Protein - Negative Bedside Urine Urobilinogen - Negative Bedside Urine Nitrite - Negative Bedside Urine Leukocytes + 70 Esterase Point of care testing: Point of Care Testing Test Results Negative Urine Dip Bedside Urine Glucose Negative Bedside Urine Bilirubin - Negative Bedside Urine Ketone - Negative Urine Specific [place] 1.005 Bedside Urine Occult Blood - Negative Bedside Urine pH 6.5 Bedside Urine Protein - Negative Bedside Urine Urobilinogen - Negative Bedside Urine Nitrite - Negative Bedside Urine Leukocytes + 70 Esterase ECG Data Interpretation: Sinus rhythm at a rate of 70 Normal axis, normal intervals No acute ischemic changes MDM Narrative Medical decision making narrative: [age] woman who is 5 post 20 week delivery forPPROM with complaints of continued low pelvic pressure, general malaise mild vaginal discharge occasional spotting. Blood work is reassuring with no evidence of elevated white blood cell count or sepsis. Chemistries do not suggest dramatic abnormalities. Bedside ultrasound shows uterus seems to be back to pre size without significant endometrial abnormalities. She is on etanercept for her arthritis she is mildly immune compromised. With the continued low pelvic pain, odor and vaginal spotting will go ahead and treat this as a endometritis. Clearly not needing hospitalization. She is given 1 g of IV ceftriaxone in the emergency department and will have her complete an additional 14 days of both doxycycline and metronidazole for presumed low-grade endometrial infection/PID. Urine did have occasional tripping. Presumably if a UTI is diagnosed the ceftriaxone and doxycycline will be adequate coverage. Questions are answered and she is safe for home discharge Discharge Plan Departure Patient Disposition: Home Clinical Impression: Endometritis following delivery Instructions: DI for Endometritis Activity Restrictions/Additional Instructions: Thank you for coming in today Your blood work was reassuring with no life-threatening abnormalities found. The bedside ultrasound suggested that your uterus is back to its pre size and there are no obvious retained products seen. You are at risk for bacterial infections with your etanercept and with the continued pelvic pressure, slight odor and slight vaginal spotting I am going to opt to treat you for mild endometrial infection. You are given IV ceftriaxone and I am going to have a complete 14 days of oral doxycycline and 10 days of metronidazole. Prescriptions were electronically transmitted to [facility] in [place] If you find that you are getting worse please feel free to return to the emergency department. If you feel that things are similar but not getting better then you do need to follow-up with Dr. Kelley. Prescriptions: New doxycycline hyclate 100 mg tablet 100 mg PO BID Qty: 20 0RF metronidazole 500 mg tablet 500 mg PO BID Qty: 20 0RF No Action prenat.vits,bakari,hyc-eqax-ysrdm Tablet 1 tab PO DAILY Enbrel 50 mg/mL (1 mL) syringe 50 mg SUBCUT QWEEK metoprolol succinate 50 mg tablet extended release 24 hr 50 mg PO DAILY metoprolol succinate 25 mg tablet extended release 24 hr 25 mg PO DAILY Referrals: Sary Tellez PA-C [Primary Care Provider] -
[2021-11-28 23:10] LABS: Add Manual Diff / Slide Review NO; Basophils Absolute Auto 0 /uL (0-100); Basophils Percent Auto 0.6 % (0-2); Eosinophils Absolute Auto 300 /uL (0-450); Eosinophils Percent Auto 4.7 % (2-4); Hematocrit 32.8 % (36-46); Hemoglobin 11.1 g/dL (12.0-16.0); Lymphocytes Absolute Auto 2100 /uL (1100-4500); Lymphocytes Percent Auto 34.6 % (25-40); Mean Corpuscular HGB Conc 33.8 % (30-36); Mean Corpuscular Volume 85.8 fL (80-100); Monocytes Absolute Auto 500 /uL (0-900); Monocytes Percent Auto 7.9 % (3-14); Neutrophils Absolute Auto 3100 /uL (1500-7000); Neutrophils Percent Auto 52.2 % (50-75); Platelet Count 165 X10^3/uL (150-400); Red Blood Cell Count 3.82 X10^6/uL (4.0-5.2); Red Cell Distribution Width 12.5 % (11.6-14.8)
[2021-11-28 23:16] LABS: Alanine Aminotransferase 36 IU/L (<35); Albumin 4.4 g/dL (3.5-5.0); Albumin Globulin Ratio 1.4 (1.0-2.8); Alkaline Phosphatase 65 U/L (38-126); Aspartate Aminotransferase 29 IU/L (14-36); BUN Creatinine Ratio 13.3 (6-22); Bilirubin Total 0.3 mg/dL (0.2-1.3); Blood Urea Nitrogen 11 mg/dL (7-17); Carbon Dioxide 26 mmol/L (22-32); Chloride 105 mmol/L (98-107); Estimated Glomerular Filt Rate > 60 mL/min (>60); Globulin 3.1 g/dL (1.7-4.1); Glucose 138 mg/dL (70-100); HEMOLYSIS < 15 (0-50); Lipase 132 U/L (23-300); Potassium 3.7 mmol/L (3.4-5.1); Sodium 142 mmol/L (137-145); Total Protein 7.5 g/dL (6.3-8.2)
[2021-11-28] MEDS: cefTRIAXone 1,000 MG in SODIUM CHLORIDE 0.9% 100 ML 200 MG IV (23:24)
[2021-11-28 23:35] VITALS: BP 138/82; PULSE 74; O2SAT 98
[2021-11-28 23:46] LABS: Bacteria Urine Few (2-10); Culture Indicated Urine Specimen Cultured; RBC Urine None Seen (0-5/HPF); Squamous Epithelial Cell Urine 1-5 /HPF (0-5/HPF); WBC Urine 1-5/HPF (0-5/HPF)
[2021-11-29 01:15] VITALS: PULSE 75; O2SAT 99
[2021-11-29 01:16] VITALS: BP 150/79; PULSE 75; O2SAT 97
== END 2021-11-29 01:20 | disposition home or self-care (01) ==
PROVIDERS: Emergency Provider Emergency Medicine; PCP Physician Assistant
DX: O86.12 Endometritis following delivery (principal)
CPT/HCPCS: 36415; 80053; 81003; 81015; 81025; 83690; 85025; 87086; 93005; 93010; 96365; 99284; J0696

== ENCOUNTER 2022-04-09 07:57 | Day surgery (SDC) | payer BC, SELFPAY ==
[2022-04-09 08:27] VITALS: BP 134/75; PULSE 95; RESP 20; TEMP 37; O2SAT 100; BMI 39.0
[2022-04-09 08:31] LABS: COVID19 -Nasal RAPID Negative (Negative)
--- NOTE | 2022-04-09 09:11 | PM.HP.1 ---
History of Present Illness History of Present Illness Date Patient Seen: 04/09/22 Time Patient Seen: 09:11 Chief complaint: SDC Narrative: Patient is a 36-year-old 8 para 3 at 13 weeks gestation with an incompetent cervix. Patient presents for a Bourne's cervical cerclage. Patient History Medical History (Updated 03/08/22 @ 23:19 by Faustina Kelley MD) Encounter for supervision of other normal , first trimester Hypertension PPD screening test (~2015) Psoriatic arthritis Viral respiratory illness Surgical History (Updated 09/24/21 @ 22:27 by Zoe Montana) Anesthesia History of ankle surgery (~1997) [place] teeth extracted Family & Social History Family History (Updated 08/21/21 @ 13:29 by Sarah Jorge RN) Mother Hypertension Hyperlipidemia Diabetes mellitus Father Hypertension Hyperlipidemia Grandmother Hypertension CVA (cerebral vascular accident) Grandfather Pancreatitis Social History: household members spouse,children lives independently Yes Tobacco & Substance use: Smoking Status Never smoker alcohol intake former alcohol intake frequency other Substance Use Type does not use Meds Home Medications and Allergies Home Medications Medication Instructions Recorded Confirmed Type etanercept 50 mg/mL (1 mL) 50 mg SUBCUT QWEEK 08/21/21 04/09/22 History subcutaneous syringe (Enbrel) prenat.vits,bakari,zwf-dliv-syziw 1 tab PO DAILY 08/21/21 04/09/22 History aspirin 81 mg tablet,delayed 81 mg PO DAILY 02/12/22 04/09/22 History release (Adult Aspirin Regimen) labetalol 200 mg tablet See Rx Instructions .Route 03/26/22 04/09/22 Rx .COMPLEX #180 tabs progesterone micronized 200 mg 200 mg PO BEDTIME recurrent 03/26/22 04/09/22 Rx capsule (Prometrium) miscarriage 8 weeks #30 caps Allergies Allergy/AdvReac Type Severity Reaction Status Date / Time fentanyl AdvReac Intermediate Verified 04/09/22 08:40 Exam Vital Signs (past 8 hours): - 04/09/22 08:27 Temperature 98.6 F Pulse Rate 95 H Respiratory Rate 20 Blood Pressure 134/75 Pulse Oximetry 100 Oxygen Delivery Method Room Air Oxygen Delivery Method Room Air Narrative Exam Narrative: HEENT: No thyromegaly, no anterior cervical or supraclavicular lymphadenopathy. Lungs:Clear to auscultation bilaterally, no wheezes. Cardiovascular: Regular rate and rhythm, no murmurs, rubs, or gallops. Abdomen: No scars. No hepatosplenomegaly. No masses palpable. External genitalia: Normal Vagina: Normal Cervix: Normal Bimanual exam: 13 Week size uterus. Extremities: No edema Objective Labs Labs: Laboratory Results - last 24 hr 04/09/22 08:08 SARS-CoV-2 (PCR) Negative Assessment & Plan Assessment & Plan narrative: Assessment: 36-year-old 8 para 3 at 13 weeks gestation with an incompetent cervix Plan: More cervical cerclage The risks, benefits, and alternatives to the procedure were explained to the patient. The risks including bleeding, infection, possible rupture of membranes. She understands all of these risks and agrees to proceed. A full par Q was held and consent form was signed. COVID-19 COVID-19 status: Negative Result date/Date tested (Pos, Neg/Pending): 04/09/22 Time Spent With Patient Time with patient: less than 30 minutes Critical Care time: I spent a total of [] minutes of critical care time on this patient's care today; this time is exclusive of procedural time.
--- NOTE | 2022-04-09 09:13 | PM.PREOP ---
Pre-operative Note COVID-19 COVID-19 status: Negative Result date/Date tested (Pos, Neg/Pending): 04/09/22 Criteria for continued procedure: Non-surgical alternatives not available or appropriate per current SOC Interval Note History & Physical reviewed/Exam performed by Physician: Yes Changes to H&P: No H&P completed within 30 days and has changed as indicated here:: 04/09/22
[2022-04-09] MEDS: CEFAZOLIN 2 GM/100 ML PREMIX 100 ML IV (09:55)
--- NOTE | 2022-04-09 10:05 | SUR.OPER ---
Lithotomy on padded OR bed, head on pillow, arms secured on padded arm boards at <90 degrees abduction. Legs secured in padded yellow fins stirrups.
[2022-04-09] MEDS: IBUPROFEN 400 MG TABLET 800 MG PO (10:10)
[2022-04-09 10:18] VITALS: BP 129/74; PULSE 78; RESP 16; TEMP 36.8; O2SAT 98
[2022-04-09 10:23] VITALS: BP 132/66; PULSE 84; RESP 16; O2SAT 98
--- NOTE | 2022-04-09 10:26 | PM.GYNOP.1 ---
Operative Date/Time/Diagnoses Date of procedure: 04/09/22 Time of procedure: 10:26 Pre-op diagnosis: Incompetent cervix 13 weeks gestation Post-op diagnosis: same Procedure & Clinicians Procedure: Procedures Operation Date: 04/09/22 09:45 Actual Procedure Side Surgeon beata Laughlin) Cervical Circlage Not Applicable Faustina Kelley MD Indications: Incompetent cervix Thirteen weeks gestation Surgeon: Faustina Kelley Anesthesia Type: Spinal Operative Notes Findings: 4 cm long cervix Closure Type: not applicable Specimen(s): none Applied: catheter (In and out) Estimated blood loss (mL): 15 Blood products transfused: none Procedure in detail: Informed consent was obtained in the office. The patient was taken to the operating room where spinal anesthesia was administered. She was then placed in the dorsal lithotomy position, and prepped and draped in the usual sterile fashion. The patient was placed into steep Trendelenburg. The anterior and posterior lips of the cervix were grasped with a ring forcep. Using the blunt needle and a 5 mm Mersilene, a pursestring suture was placed around the cervix 3 cm from the external cervical os. Five knots were placed at 12 o'clock. The ring forceps were removed from the anterior and posterior lips of the cervix. Sponge, lap, and instrument counts correct x2. The patient tolerated the procedure well, and was taken to PACU in stable condition. Complications: none Post-operative Condition: stable Disposition: PACU Plan for aftercare: Home after recovery
[2022-04-09 10:35] VITALS: BP 132/72; PULSE 66; RESP 16; O2SAT 98
[2022-04-09 10:45] VITALS: BP 128/77; PULSE 88; RESP 16; O2SAT 98
[2022-04-09] MEDS: LACTATED RINGERS 1,000 ML 100 ML IV (10:56)
--- NOTE | 2022-04-09 11:07 | SUR.PHASEII ---
Patient able to walk to bathroom with minimal assistance after spinal. Voided without difficulty. Denies any pain or nausea; no vaginal bleeding noted. All discharge instructions reviewed with patient.
[2022-04-09 11:13] VITALS: BP 145/84; PULSE 71; RESP 20; TEMP 36.2; O2SAT 98
== END 2022-04-09 11:14 | disposition home or self-care (01) ==
PROVIDERS: Referring Provider Obstetrics & Gynecology; Visit Provider Obstetrics & Gynecology
PROC: 0UVC7ZZ Restriction of Cervix, Via Natural or Artificial Opening (ICD-10-PCS; CPT 57700; principal; 2022-04-09 09:45)
DX: O34.31 Maternal care for cervical incompetence, first trimester (principal); Z3A.13 13 weeks gestation of pregnancy
CPT/HCPCS: 59320; 81025; 87635; C9803; J0690; J3010

== ENCOUNTER → 2022-05-29 09:01 | Outpatient (CLI) | payer BC, SELFPAY ==
--- NOTE | 2022-05-29 09:01 | DI.US.S_ITS ---
PROCEDURE: OB >= 14 WEEKS FETUS INDICATIONS: 20 WEEK ANATOMY OUTSIDE/PRIOR DATING DATA: Last menstrual period (LMP): 01/08/2022. LMP-based estimated date of delivery (OPAL): 10/15/2022. First dating scan (date and location): 03/06/2022. Estimated date of delivery (OPAL) from first dating scan: 10/16/2022. The calculations are made using the clinical OPAL of 10/15/2022. TECHNIQUE: Real-time scanning was performed of the fetus, with image documentation and biometric measurements. COMPARISON: [facility], OB <= 14 WEEKS FETUS, 03/06/2022, 14:04. [facility] OB LIMITED, 10/24/2021, 18:01. [facility], OB >= 14 WEEKS FETUS, 05/25/2022, 9:50. FINDINGS: General: A single living intrauterine gestation is present. Presentation: Vertex. Placenta: Placental position is anterior , without previa. Amniotic fluid index: 13.4 cm, normal range is 5-24 cm. Single deepest vertical pocket is 3.9 cm. heart rate: 162 beats per minute. Maternal cervical canal: 4.3 cm long. Normal lower limit is 2.5 cm. Cervical cerclage is present. biometrics: Biparietal diameter: 4.6 cm 20 weeks 0 days Head circumference: 17.0 cm 19 weeks 4 days Abdominal circumference: 15.2 cm 20 weeks 3 days Femur length: 3.3 cm 20 weeks 2 days Clinically estimated gestational age: 20 weeks 1 day Composite gestational age from present scan: 20 weeks 1 day Estimated weight and percentile: 346 g 55th percentile Anatomic survey: Neuro: Ventricles are non-dilated at less than 10 mm. Cisterna magna is normal at 3-11 mm. Cerebellum is normal in size and morphology. Nuchal skin fold: Normal at less than 6 mm between 14-21 weeks gestational age. Face: Nose and lips, facial profile are normal. Spine: No evidence for spina bifida. Heart: 4-chambered heart is present, with normal ventricular outflow tracts. Diaphragm: Diaphragm is intact. Stomach: Left-sided stomach is present. Kidneys: No hydronephrosis. Normal is less than 5 mm in 2nd trimester, less than 7 mm in 3rd trimester. Cord: 3-vessel cord has orthotopic insertion. Bladder: Normal in size. Extremities: All 4 extremities identified. IMPRESSION: Single live intrauterine . Anatomy is within normal limits. We strive to produce accurate, complete, and clear reports of imaging services. To assist us in improving patient care, this report was composed using standard report templates and voice recognition software. Therefore, it may contain abnormal punctuation, insertions and/or omissions. Occasional wrong-word or sound-alike substitutions may occur. Though we review the report and make efforts to correct it, we do recommend that the report be read carefully in proper context to recognize any text inaccuracies. Dictated by: Aline Vargas M.D. on 05/29/2022 at 12:43 Approved by: Aline Vargas M.D. on 05/29/2022 at 13:17
== END ==
PROVIDERS: Referring Provider Obstetrics & Gynecology; Visit Provider Obstetrics & Gynecology
DX: Z34.82 Encounter for supervision of other normal pregnancy, second trimester (principal); Z3A.20 20 weeks gestation of pregnancy
CPT/HCPCS: 76811

== ENCOUNTER → 2022-06-24 10:56 | Outpatient (CLI) | payer OTHER, SELFPAY ==
[2022-06-24 12:32] LABS: Hematocrit 30.5 % (36-46); Hemoglobin 10.4 g/dL (12.0-16.0)
[2022-06-24 13:01] LABS: GTT (PREG) 1 Hour PP 50gm Dose 106 mg/dL (76-139)
== END ==
PROVIDERS: Referring Provider Obstetrics & Gynecology; Visit Provider Obstetrics & Gynecology
DX: Z34.82 Encounter for supervision of other normal pregnancy, second trimester (principal); Z3A.26 26 weeks gestation of pregnancy
CPT/HCPCS: 36415; 82950; 85014; 85018

== ENCOUNTER 2022-07-05 09:57 | Outpatient (CLI) | payer OTHER, SELFPAY ==
--- NOTE | 2022-07-05 12:09 | PM.OBTRLD ---
Visit Information Visit Information Date of evaluation: 07/05/22 Primary OB Provider: Faustina Kelley On-call OB Provider: Linda Morris Reason for Evaluation: Yes other Comments/Additional reasons for admission: 36YO @ 38rio0g here for concern for leaking of foul smelling discharge. Anxious because of a hx of PPROM @ 21wks. No vaginal pain, tenderness, itching, continued leaking fluid. +FM. Routine PN care w/ and has a routine OB appointment in 2 days. Vital Signs Vital Signs: BP 122/63, HR 102, T 36.4C Temporal PFSH Medical History Encounter for supervision of other normal , first trimester Hypertension PPD screening test (~2015) Psoriatic arthritis Viral respiratory illness Surgical History Anesthesia History of ankle surgery (~1997) [place] teeth extracted Family History Mother Hypertension Hyperlipidemia Diabetes mellitus Father Hypertension Hyperlipidemia Grandmother Hypertension CVA (cerebral vascular accident) Grandfather Pancreatitis Social History marital status: number of children: 3 household members: spouse and children lives independently: Yes housing: house pets and animals: No education level: college ([employer] degree) occupational status: employed current occupational exposures/hazards: Yes (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 6 months ago seatbelt use: always water heater temp set < 120 deg: No working smoke detector in home: Yes fire extinguisher in home: Yes carbon monox detector in home: Yes firearms in home: No do you feel safe at home: Yes Smoking Status: Never smoker second hand exposure: No alcohol intake: former substance use type: does not use during the past year weight has: other (Major weight changes up and down with medication changes) well-balanced diet: daily or most days daily servings fruits/ve-4 caffeine: Yes Type(s) of exercise: none Review of Systems Review of Systems ROS: Yes All systems reviewed with the patient and are negative except as otherwise documented Exam Vital Signs (past 8 hours): See above Objective Labs Labs: Wet prep- negative Evaluation Evaluation Baseline heart rate: 135 Non-invasive Membranes Rupture Test: negative Diagnosis, Plan/Disposition Final Diagnosis (1) Noninflammatory disorder of vagina, unspecified: Status: Acute Plan/Disposition Plan: Reassurance given of no PPROM or vaginal infection. Discharge to home with routine precautions. Follow-up in clinic as previously scheduled. OB Disposition: home
== END 2022-07-05 11:00 | disposition home or self-care (01) ==
LOC: OB 07-09 07:00
PROVIDERS: Referring Provider Obstetrics & Gynecology; Visit Provider Obstetrics & Gynecology
DX: O26.892 Other specified pregnancy related conditions, second trimester (principal); N89.8 Other specified noninflammatory disorders of vagina; Z3A.25 25 weeks gestation of pregnancy
CPT/HCPCS: 84112; 87210; G0378; G0379

== ENCOUNTER 2022-08-12 10:18 | Outpatient (CLI) | payer OTHER, SELFPAY | END 2022-08-12 11:24 | disposition home or self-care (01) | LOC: LABOR 10:51 → OB 08-14 15:21 | PROVIDERS: Referring Provider Obstetrics & Gynecology; Visit Provider Obstetrics & Gynecology | DX: O13.3 Gestational [pregnancy-induced] hypertension without significant proteinuria, third trimester (principal); O09.523 Supervision of elderly multigravida, third trimester; O26.23 Pregnancy care for patient with recurrent pregnancy loss, third trimester; Z3A.30 30 weeks gestation of pregnancy | CPT/HCPCS: 59025; G0378; G0379 ==

== ENCOUNTER 2022-08-19 13:54 | Outpatient (CLI) | payer OTHER, SELFPAY | END 2022-08-19 14:35 | disposition home or self-care (01) | LOC: LABOR 14:28 → OB 08-21 14:26 | PROVIDERS: PCP Nurse Practitioner Family; Referring Provider Obstetrics & Gynecology; Visit Provider Obstetrics & Gynecology | DX: O09.523 Supervision of elderly multigravida, third trimester (principal); O13.3 Gestational [pregnancy-induced] hypertension without significant proteinuria, third trimester; O26.23 Pregnancy care for patient with recurrent pregnancy loss, third trimester; Z3A.31 31 weeks gestation of pregnancy | CPT/HCPCS: 59025; G0378; G0379 ==

== ENCOUNTER 2022-08-26 08:27 | Outpatient (CLI) | payer OTHER, SELFPAY | END 2022-08-26 09:03 | disposition home or self-care (01) | LOC: LABOR 10:22 → OB 08-27 10:29 | PROVIDERS: PCP Nurse Practitioner Family; Referring Provider Obstetrics & Gynecology; Visit Provider Obstetrics & Gynecology | DX: O13.3 Gestational [pregnancy-induced] hypertension without significant proteinuria, third trimester (principal); O09.523 Supervision of elderly multigravida, third trimester; Z3A.32 32 weeks gestation of pregnancy | CPT/HCPCS: 59025; G0378; G0379 ==

== ENCOUNTER 2022-09-02 10:18 | Outpatient (CLI) | payer OTHER, SELFPAY ==
--- NOTE | 2022-09-02 11:23 | P.TNLD_ITS ---
Visit Information Visit Information Date of evaluation: 09/02/22 Primary OB Provider: Faustina Kelley On-call OB Provider: Merlene Najera Reason for Evaluation: Yes non-stress test non-stress test reason: hypertension/pre-eclampsia Comments/Additional reasons for admission: Cerclage in place Vital Signs Vital Signs: Blood pressure 131/70, pulse 96 PFSH Medical History Encounter for supervision of other normal , first trimester Hypertension PPD screening test (~2015) Psoriatic arthritis Viral respiratory illness Surgical History Anesthesia History of ankle surgery (~1997) [place] teeth extracted Family History Mother Hypertension Hyperlipidemia Diabetes mellitus Father Hypertension Hyperlipidemia Grandmother Hypertension CVA (cerebral vascular accident) Grandfather Pancreatitis Social History marital status: number of children: 3 household members: spouse and children lives independently: Yes housing: house pets and animals: No education level: college ([employer] degree) occupational status: employed current occupational exposures/hazards: Yes (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 6 months ago seatbelt use: always water heater temp set < 120 deg: No working smoke detector in home: Yes fire extinguisher in home: Yes carbon monox detector in home: Yes firearms in home: No do you feel safe at home: Yes Smoking Status: Never smoker second hand exposure: No alcohol intake: former substance use type: does not use during the past year weight has: other (Major weight changes up and down with medication changes) well-balanced diet: daily or most days daily servings fruits/ve-4 caffeine: Yes Type(s) of exercise: none Evaluation Evaluation Baseline heart rate: 130 Variability: Moderate (11-25) monitor accelerations: Present Monitor Decelerations: Absent Contraction Frequency (minutes): 0 Status: Category l Diagnosis, Plan/Disposition Final Diagnosis (1) Bourne cerclage present: Status: Acute (2) Chronic hypertension: Status: Acute (3) 33 weeks gestation of : Status: Acute Plan/Disposition Plan: Reactive nonstress test without evidence of contractions continue her routine OB follow-up and biweekly nonstress tests OB Disposition: home
== END 2022-09-02 11:23 | disposition home or self-care (01) ==
LOC: LABOR 11:26 → OB 09-07 11:15
PROVIDERS: PCP Nurse Practitioner Family; Referring Provider Obstetrics & Gynecology; Visit Provider Obstetrics & Gynecology
DX: O10.913 Unspecified pre-existing hypertension complicating pregnancy, third trimester (principal); O34.33 Maternal care for cervical incompetence, third trimester; Z3A.33 33 weeks gestation of pregnancy
CPT/HCPCS: 59025; G0378; G0379

== ENCOUNTER 2022-09-06 11:57 | Outpatient (CLI) | payer OTHER, SELFPAY | END 2022-09-06 12:50 | disposition home or self-care (01) | LOC: OB 09-09 11:03 | PROVIDERS: PCP Nurse Practitioner Family; Referring Provider Obstetrics & Gynecology; Visit Provider Obstetrics & Gynecology | DX: O09.523 Supervision of elderly multigravida, third trimester (principal); O26.23 Pregnancy care for patient with recurrent pregnancy loss, third trimester; O13.3 Gestational [pregnancy-induced] hypertension without significant proteinuria, third trimester; Z3A.34 34 weeks gestation of pregnancy | CPT/HCPCS: 59025; G0378; G0379 ==

== ENCOUNTER 2022-09-09 09:03 | Outpatient (CLI) | payer OTHER, SELFPAY | END 2022-09-09 10:10 | disposition home or self-care (01) | LOC: LABOR 09:15 → OB 09-18 06:08 | PROVIDERS: PCP Nurse Practitioner Family; Referring Provider Obstetrics & Gynecology; Visit Provider Obstetrics & Gynecology | DX: O13.3 Gestational [pregnancy-induced] hypertension without significant proteinuria, third trimester (principal); Z34.83 Encounter for supervision of other normal pregnancy, third trimester; Z3A.34 34 weeks gestation of pregnancy; O09.523 Supervision of elderly multigravida, third trimester | CPT/HCPCS: 59025; 87653; G0378; G0379 ==

== ENCOUNTER → 2022-09-09 09:06 | Outpatient (CLI) | payer OTHER, SELFPAY ==
[2022-09-10 10:40] LABS: Strep Grp B PCR NEG for Grp B Strep
== END ==
PROVIDERS: PCP Nurse Practitioner Family; Visit Provider Obstetrics & Gynecology
DX: Z34.83 Encounter for supervision of other normal pregnancy, third trimester (principal); Z3A.34 34 weeks gestation of pregnancy
CPT/HCPCS: 87653

== ENCOUNTER 2022-09-13 11:53 | Outpatient (CLI) | payer OTHER, SELFPAY ==
--- NOTE | 2022-09-13 12:42 | P.TNLD_ITS ---
Visit Information Visit Information Date of evaluation: 09/13/22 Primary OB Provider: Faustina Kelley On-call OB Provider: Cindy Santiago Comments/Additional reasons for admission: 37yo at 35w3d here for NST for chronic HTN. Pt denies any vaginal bleeding, LOF, contractions. She is feeling her baby move regularly. No headaches, vision changes, RUQ pain, worsening edema. [facility] Medical History Encounter for supervision of other normal , first trimester Hypertension PPD screening test (~2015) Psoriatic arthritis Viral respiratory illness Surgical History Anesthesia History of ankle surgery (~1997) [place] teeth extracted Family History Mother Hypertension Hyperlipidemia Diabetes mellitus Father Hypertension Hyperlipidemia Grandmother Hypertension CVA (cerebral vascular accident) Grandfather Pancreatitis Social History marital status: number of children: 3 household members: spouse and children lives independently: Yes housing: house pets and animals: No education level: college ([employer] degree) occupational status: employed current occupational exposures/hazards: Yes (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 6 months ago seatbelt use: always water heater temp set < 120 deg: No working smoke detector in home: Yes fire extinguisher in home: Yes carbon monox detector in home: Yes firearms in home: No do you feel safe at home: Yes Smoking Status: Never smoker second hand exposure: No alcohol intake: former substance use type: does not use during the past year weight has: other (Major weight changes up and down with medication changes) well-balanced diet: daily or most days daily servings fruits/ve-4 caffeine: Yes Type(s) of exercise: none Evaluation Evaluation Baseline heart rate: 150 Variability: Moderate (11-25) monitor accelerations: Present Monitor Decelerations: Absent Category of Tracing: Reactive Diagnosis, Plan/Disposition Final Diagnosis (1) 35 weeks gestation of : Status: Acute (2) Chronic hypertension: Status: Acute (3) AMA (advanced maternal age) primigravida 35+: Status: Acute Plan/Disposition Plan: 37yo at 35w3d here for NST for chronic HTN. Initial BP elevated to 146/81, repeat BP 137/75. On review of pts chart, last MFM note requesting labs for chronic HTN. These were ordered today. Stable for d/c home. Continue twice weekly testing. OB Disposition: home
[2022-09-13 13:08] LABS: Add Manual Diff / Slide Review NO; Basophils Absolute Auto 0 /uL (0-100); Basophils Percent Auto 0.4 % (0-2); Eosinophils Absolute Auto 200 /uL (0-450); Eosinophils Percent Auto 2.5 % (2-4); Hematocrit 30.3 % (36-46); Hemoglobin 10.5 g/dL (12.0-16.0); Lymphocytes Absolute Auto 1500 /uL (1100-4500); Lymphocytes Percent Auto 20.8 % (25-40); Mean Corpuscular HGB Conc 34.6 % (30-36); Mean Corpuscular Hemoglobin 30.6 PG (26-34); Mean Corpuscular Volume 88.5 fL (80-100); Monocytes Absolute Auto 700 /uL (0-900); Monocytes Percent Auto 10.2 % (3-14); Neutrophils Absolute Auto 4800 /uL (1500-7000); Neutrophils Percent Auto 66.1 % (50-75); Platelet Count 156 X10^3/uL (150-400); Red Blood Cell Count 3.42 X10^6/uL (4.0-5.2); Red Cell Distribution Width 12.8 % (11.6-14.8); White Blood Cell Count 7.2 X10^3/uL (4.5-11.0)
[2022-09-13 13:22] LABS: Alanine Aminotransferase 26 IU/L (<35); Albumin Globulin Ratio 1.2 (1.0-2.8); Alkaline Phosphatase 52 U/L (38-126); Aspartate Aminotransferase 39 IU/L (14-36); BUN Creatinine Ratio 13.3 (6-22); Bilirubin Total 0.5 mg/dL (0.2-1.3); Blood Urea Nitrogen 6 mg/dL (7-17); Calcium 8.9 mg/dL (8.4-10.2); Carbon Dioxide 22 mmol/L (22-32); Chloride 106 mmol/L (98-107); Estimated Glomerular Filt Rate > 60 mL/min (>60); Globulin 3.4 g/dL (1.7-4.1); Glucose 86 mg/dL (70-100); Potassium 4.1 mmol/L (3.4-5.1); Sodium 136 mmol/L (137-145); Total Protein 7.4 g/dL (6.3-8.2)
[2022-09-13 13:29] LABS: HEMOLYSIS 63 (0-50)
== END 2022-09-13 12:46 | disposition home or self-care (01) ==
LOC: LABOR 11:58 → OB 09-18 06:09
PROVIDERS: Family Medicine; PCP Nurse Practitioner Family; Referring Provider Obstetrics & Gynecology; Visit Provider Obstetrics & Gynecology
DX: O10.913 Unspecified pre-existing hypertension complicating pregnancy, third trimester (principal); O09.523 Supervision of elderly multigravida, third trimester; Z3A.35 35 weeks gestation of pregnancy
CPT/HCPCS: 36415; 59025; 80053; 85025; G0378; G0379

== ENCOUNTER → 2022-09-14 19:34 | Outpatient (ROUT) | payer OTHER, SELFPAY ==
[2022-09-14 20:52] LABS: Collection Time Urine 24 Hours; Protein (Total) Urine Random 15 mg/dL (0-12); Total Protein 24 Hour Urine 435 mg/day (42-225); Total Volume Urine 2900 mL
== END ==
PROVIDERS: Family Medicine; PCP Nurse Practitioner Family; Visit Provider Obstetrics & Gynecology
DX: I10 Essential (primary) hypertension (principal); Z3A.35 35 weeks gestation of pregnancy
CPT/HCPCS: 84156

== ENCOUNTER 2022-09-16 08:30 | Outpatient (CLI) | payer OTHER, SELFPAY ==
--- NOTE | 2022-09-20 13:31 | PM.PROC.1 ---
Procedures Date/Time Date of procedure: 09/18/22 Time of procedure: 09:30 General Procedure description: External cephalic version Hep-Lock was placed. Nonstress test was performed and was reactive. Informed consent was obtained. Baby was found to be in the breech presentation with head upper left and feet lower right. Four attempts were made to turn baby externally, while checking heart rate in between each attempt. The attempts were unsuccessful. Nonstress test after the procedure was reactive. Complications: none
== END 2022-09-16 10:00 | disposition home or self-care (01) ==
LOC: OB 10-23 09:49
PROVIDERS: PCP Nurse Practitioner Family; Referring Provider Obstetrics & Gynecology; Visit Provider Obstetrics & Gynecology
DX: O32.1XX0 Maternal care for breech presentation, not applicable or unspecified (principal); Z3A.35 35 weeks gestation of pregnancy
CPT/HCPCS: 59025; 59050; G0378; G0379

== ENCOUNTER 2022-09-18 08:30 | Observation (INO) | payer OTHER, SELFPAY ==
[2022-09-18] MEDS: TERBUTALINE 1 MG/ML VIAL 0.25 MG SUBCUT (09:49)
== END 2022-09-18 10:35 | disposition home or self-care (01) ==
PROVIDERS: Admitting Provider Obstetrics & Gynecology; PCP Nurse Practitioner Family; Referring Provider Obstetrics & Gynecology; Visit Provider Obstetrics & Gynecology
DX: O32.1XX0 Maternal care for breech presentation, not applicable or unspecified (principal); Z3A.36 36 weeks gestation of pregnancy
CPT/HCPCS: 59025; 59050; 59412; 76815; 96372; G0378; G0379

== ENCOUNTER 2022-09-20 11:35 | Outpatient (CLI) | payer OTHER, SELFPAY ==
--- NOTE | 2022-09-20 12:30 | PM.OBTRLD ---
Visit Information Visit Information Date of evaluation: 09/20/22 Primary OB Provider: Faustina Kelley On-call OB Provider: Faustina Kelley Reason for Evaluation: Yes non-stress test non-stress test reason: hypertension/pre-eclampsia Vital Signs Vital Signs: BP 126/81 COUNT INCLUDES THE [facility] Medical History Encounter for supervision of other normal , first trimester Hypertension PPD screening test (~2015) Psoriatic arthritis Viral respiratory illness Surgical History Anesthesia History of ankle surgery (~1997) [place] teeth extracted Family History Mother Hypertension Hyperlipidemia Diabetes mellitus Father Hypertension Hyperlipidemia Grandmother Hypertension CVA (cerebral vascular accident) Grandfather Pancreatitis Social History marital status: number of children: 3 household members: spouse and children lives independently: Yes housing: house pets and animals: No education level: college ([employer]'s degree) occupational status: employed current occupational exposures/hazards: Yes (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 6 months ago seatbelt use: always water heater temp set < 120 deg: No working smoke detector in home: Yes fire extinguisher in home: Yes carbon monox detector in home: Yes firearms in home: No do you feel safe at home: Yes Smoking Status: Never smoker second hand exposure: No alcohol intake: former substance use type: does not use during the past year weight has: other (Major weight changes up and down with medication changes) well-balanced diet: daily or most days daily servings fruits/ve-4 caffeine: Yes Type(s) of exercise: none Evaluation Evaluation Baseline heart rate: 145 Variability: Moderate (11-25) monitor accelerations: Present Monitor Decelerations: Absent Status: Category l Diagnosis, Plan/Disposition Final Diagnosis (1) Breech presentation: Status: Acute (2) Incompetent cervix: Status: Acute (3) Recurrent loss: Status: Acute (4) Chronic hypertension: Status: Acute (5) Bourne cerclage present: Status: Acute (6) 36 weeks gestation of : Status: Acute Problem details: Chronic HTN on Labetolol and Nifedipine Breech presentation Reactive NST Plan/Disposition Plan: Discharge to home F/U 3 days for preop and ob exam Warning signs reviewed [facility]'s explained OB Disposition: home
== END 2022-09-20 12:12 | disposition home or self-care (01) ==
LOC: OB 09-25 06:07
PROVIDERS: PCP Nurse Practitioner Family; Referring Provider Obstetrics & Gynecology; Visit Provider Obstetrics & Gynecology
DX: O32.1XX0 Maternal care for breech presentation, not applicable or unspecified (principal); O34.33 Maternal care for cervical incompetence, third trimester; O26.23 Pregnancy care for patient with recurrent pregnancy loss, third trimester; O10.913 Unspecified pre-existing hypertension complicating pregnancy, third trimester; Z3A.36 36 weeks gestation of pregnancy
CPT/HCPCS: 59025; G0378; G0379

== ENCOUNTER 2022-09-23 09:59 | Outpatient (CLI) | payer OTHER, SELFPAY | END 2022-09-23 10:46 | disposition home or self-care (01) | LOC: LABOR 10:12 → OB 09-25 06:08 | PROVIDERS: PCP Nurse Practitioner Family; Referring Provider Obstetrics & Gynecology; Visit Provider Obstetrics & Gynecology | DX: O10.913 Unspecified pre-existing hypertension complicating pregnancy, third trimester (principal); Z3A.36 36 weeks gestation of pregnancy | CPT/HCPCS: 59025; G0378; G0379 ==

== ENCOUNTER 2022-09-24 05:30 | Inpatient (IN) | payer OTHER, SELFPAY ==
[2022-09-24] VITALS (16 sets, daily range): BP systolic 88–129; BP diastolic 50–78; PULSE 80–96; RESP 10–19; TEMP 36.1–36.6; O2SAT 96–100
[2022-09-24] MEDS: LACTATED RINGERS 1,000 ML 999 ML IV (06:38)
[2022-09-24 06:48] LABS: Add Manual Diff / Slide Review NO; Basophils Absolute Auto 0 /uL (0-100); Basophils Percent Auto 0.2 % (0-2); Eosinophils Absolute Auto 200 /uL (0-450); Eosinophils Percent Auto 2.5 % (2-4); Hematocrit 30.5 % (36-46); Hemoglobin 10.3 g/dL (12.0-16.0); Lymphocytes Absolute Auto 1600 /uL (1100-4500); Lymphocytes Percent Auto 21.6 % (25-40); Mean Corpuscular HGB Conc 33.9 % (30-36); Mean Corpuscular Volume 88.4 fL (80-100); Monocytes Absolute Auto 600 /uL (0-900); Monocytes Percent Auto 8.3 % (3-14); Neutrophils Absolute Auto 4900 /uL (1500-7000); Neutrophils Percent Auto 67.4 % (50-75); Platelet Count 154 X10^3/uL (150-400); Red Blood Cell Count 3.45 X10^6/uL (4.0-5.2); Red Cell Distribution Width 12.9 % (11.6-14.8); White Blood Cell Count 7.3 X10^3/uL (4.5-11.0)
--- NOTE | 2022-09-24 07:15 | SUR.OPER ---
Supine on Padded OR bed, head on pillow, safety belt at thigh, arms secured on padded arm boards at <90 degrees abduction. Bump under right buttock. Legs uncrossed with pillow under knees, gel pad to heels, tape over blanket to lower legs.
[2022-09-24] MEDS: CITRIC ACID/SODIUM CITRATE 15 ML SOLUTION 30 ML PO (07:30)
--- NOTE | 2022-09-24 07:32 | PM.OBHP.IH.1 ---
OB HPI Date/Time Date of admission: 09/24/22 Date Patient Seen: 09/24/22 Time Patient Seen: 07:32 History of Present Condition Chief complaint: INPT OPAL Calculator Estimated Delivery Date Method Current WG Current Estimate 10/15/22 LMP (Certain) 37w 0d Other Estimates 10/16/22 Ultrasound #1 36w 6d Estimated Gestational Age (weeks): 37 : 8 Para: 3 care: good care, initiated at week # (8), number of visits (14) and pounds weight gain (28) Dating criteria OB: LMP confirmed by 1st trimester US Ultrasounds: normal 1st trimester US and normal mid trimester US Obstetrical complications: gestational hypertension and other (breech, AMA) Medical complications OB: cardiovascular (Hypertension, recurrent loss) Indications Operative indications ( section): breech presentation Preadmission Labs Last OB Lab Results: Blood Type B Positive 09/24/22 06:15 Antibody Screen Negative 09/24/22 06:15 Hematocrit 30.5 % (36-46) L 09/24/22 06:15 Hemoglobin 10.3 g/dL (12.0-16.0) L 09/24/22 06:15 Hepatitis B Surface Antigen Negative s/c (NEGATIVE) 08/25/21 17:51 Hepatitis C Antibody Negative s/c (NEGATIVE) 08/25/21 17:51 Rubella Antibody 11.0 IU/mL (>15) L 08/25/21 17:51 Varicella-Zoster IgG Antibody <135 index (Immune >165) L 08/25/21 17:51 Glucose 1 Hour 106 mg/dL (76-139) 06/24/22 12:10 Group B Streptococcus (PCR) Neg for grp b strep 09/09/22 09:06 -: Chlamydia screen: negative, Gonorrhea screen: negative and Urine: negative -: PAP smear: Normal External Labs -: Urine: negative Prior (ies) Past Pregnancies Del. Date GA/Weeks Labor Lgth Wt Sex Route Outcome Anesthesia Place Delv Breastfeed Preg Comp Name 05/22/13 40 9 9 lb 6 oz Female vaginal live - full term [place] Miranda 1 year none Car[place] 01/03/14 9 spontaneous 04/03/15 4 spontaneous 01/29/16 42 6 8 lb 12 oz Female vaginal live - full term [place] Miranda 1 year none [place] 06/05/18 37 2 6 lb 9 oz Female vaginal live - full term Ven[place] Miranda 8 months gestational hypertension Adiana 05/30/21 6 spontaneous 10/27/21 20 11 oz Female vaginal still intravenous analgesics Rangel Sepulveda Delivery Date: 10/27/21 Last Updated by: Faustina Kelley MD PPROM Evaluation Evaluation Baseline heart rate: 135 Variability: Moderate (11-25) monitor accelerations: Present Monitor Decelerations: Absent PFSH Medical History Encounter for supervision of other normal , first trimester Hypertension PPD screening test (~2015) Psoriatic arthritis Viral respiratory illness Surgical History Anesthesia History of ankle surgery (~1997) [place] teeth extracted Family History Mother Hypertension Hyperlipidemia Diabetes mellitus Father Hypertension Hyperlipidemia Grandmother Hypertension CVA (cerebral vascular accident) Grandfather Pancreatitis Social History marital status: number of children: 3 household members: spouse and children lives independently: Yes housing: house pets and animals: No education level: college (Kelly's degree) occupational status: employed current occupational exposures/hazards: Yes (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 6 months ago seatbelt use: always water heater temp set < 120 deg: No working smoke detector in home: Yes fire extinguisher in home: Yes carbon monox detector in home: Yes firearms in home: No do you feel safe at home: Yes Smoking Status: Never smoker second hand exposure: No alcohol intake: former substance use type: does not use during the past year weight has: other (Major weight changes up and down with medication changes) well-balanced diet: daily or most days daily servings fruits/ve-4 caffeine: Yes Type(s) of exercise: none Meds Home Medications and Allergies Home Medications Medication Instructions Recorded Confirmed Type etanercept 50 mg/mL (1 mL) 50 mg SUBCUT QWEEK 08/21/21 09/24/22 History subcutaneous syringe (Enbrel) prenat.vits,bakari,nbw-urbt-vnykb 1 tab PO DAILY 08/21/21 09/24/22 History aspirin 81 mg tablet,delayed 81 mg PO DAILY 02/12/22 09/24/22 History release (Adult Aspirin Regimen) nifedipine 30 mg tablet,extended See Rx Instructions .Route 06/23/22 09/24/22 Rx release .COMPLEX #90 tabs labetalol 200 mg tablet See Rx Instructions .Route 08/27/22 09/24/22 Rx .COMPLEX #180 tabs Allergies Allergy/AdvReac Type Severity Reaction Status Date / Time fentanyl AdvReac Intermediate Verified 09/24/22 06:34 OB Exam Narrative Exam Narrative: Generally: Patient is sitting up in bed, no acute distress HEENT: No thyromegaly, no anterior cervical or supraclavicular lymphadenopathy. Lungs:Clear to auscultation bilaterally, no wheezes. Cardiovascular: Regular rate and rhythm, no murmurs, rubs, or gallops. Abdomen: No scars. No hepatosplenomegaly. No masses palpable. Fundal height: 38 cm Estimated weight: 6-1/2 lb Cervix: Cerclage in place Extremities: Trace edema Objective Labs 09/24/22 06:15 Labs: Laboratory Results - last 24 hr 09/24/22 09/24/22 06:15 06:15 WBC 7.3 RBC 3.45 L Hgb 10.3 L Hct 30.5 L MCV 88.4 MCH 30.0 MCHC 33.9 RDW 12.9 Plt Count 154 Neut % (Auto) 67.4 Lymph % (Auto) 21.6 L [place] % (Auto) 8.3 Eos % (Auto) 2.5 Baso % (Auto) 0.2 Neut # (Auto) 4900 Lymph # (Auto) 1600 [place] # (Auto) 600 Eos # (Auto) 200 Baso # (Auto) 0 Blood Type B Positive Antibody Screen Negative Assessment and Plan Assessment and Plan Assessment and Plan narrative: Assessment: 37-year-old 8 para 3 chronic hypertension, incompetent cervix, recurrent loss Breech presentation, failed external cephalic version Plan: Primary low-transverse section and cerclage removal The risks, benefits, and alternatives to the procedure were explained to the patient. The risks including bleeding, infection, injury to the bowel, bladder, or ureters. She understands these risks and agrees to proceed. A full par Q was held and consent form was signed. Time Spent with Patient Total time spent with greater than 50% in coordination of care (as documented) at patient's floor/unit and/or counseling patient:: less than 15 minutes
--- NOTE | 2022-09-24 07:38 | PM.PREOP ---
Pre-operative Note Interval Note History & Physical reviewed/Exam performed by Physician: Yes Changes to H&P: No H&P completed within 30 days and has changed as indicated here:: 09/24/22
[2022-09-24] MEDS: CEFAZOLIN 2 GM/100 ML PREMIX 100 ML IV (08:00)
[2022-09-24] MEDS: ACETAMINOPHEN IV 1,000 MG/100 ML VIAL 400 MG IV (08:30)
--- NOTE | 2022-09-24 08:57 | SUR.OPER ---
Pre operative heart tones in 150s. Baby girl born at 0842. Placenta delivered at 0846. Placenta and cord blood sent with L&D RN Darby.
--- NOTE | 2022-09-24 09:50 | P.OP_ITS ---
Operative Date/Time/Diagnoses Date of procedure: 09/24/22 Time of procedure: 09:51 Pre-op diagnosis: Thirty-seven weeks gestation Chronic hypertension Advanced maternal age Incompetent cervix, Bourne cervical cerclage present Recurrent loss Post-op diagnosis: same Procedure & Clinicians Procedure: Repeat low-transverse section Same procedure as scheduled: Yes Indications: 37 weeks gestation Recurrent Persistent breech presentation Chronic hypertension Incompetent cervix with Bourne cervical cerclage present Surgeon: Faustina Chand Yes if Unassisted: No Occupational Health Coordinator: Cindy Santiago Reason for Occupational Health Coordinator: The recruitment assistant was necessary for retraction upon entry into the abdomen and uterus. She assisted with fundal pressure upon delivery of the breech . She assisted with closure of the uterus and abdomen with retraction and clipping of suture. She closed the contralateral fascia. Anesthesia Type: Spinal (With Duramorph) Operative Notes Findings: Live Closure Type: primary Specimen(s): cord blood and placenta Intraoperative meds administered: Acetaminophen, Duramorph, Ketorolac and Pitocin Applied: Catheter (To continuous drainage) Estimated Blood Loss (mL): 350 Blood products transfused: none Procedure in detail: The patient was taken to the operating room where she was placed in the seated position. Spinal anesthesia with Duramorph was administered. The patient was placed in the dorsal lithotomy position. A bivalve speculum was placed into the vagina. The Bourne cervical cerclage suture was grasped with a ring forceps. One loop was cut and the cerclage was removed in 1 piece. The patient was then placed in the dorsal supine position with a leftward tilt. She was prepped and draped in the usual sterile fashion. A timeout was performed. After spinal analgesia was found to be adequate, a Pfannenstiel skin incision was made through the previous incision and carried through to the underlying layer fascia. The fascia was nicked in the midline, and the incision extended bilaterally with the Calderon scissors. The superior aspect of the fascial incision was grasped with a [place] clamps, elevated, and the underlying rectus muscles dissected off sharply and bluntly. Attention was then turned to the inferior aspect of this incision which in a similar fashion was grasped with a Steve clamps, elevated, and the underlying rectus muscles dissected off sharply and bluntly. The rectus muscles were in the midline. The peritoneum was identified, grasped between 2 hemostats, and entered sharply with the Metzenbaum scissors. This incision was extended superiorly and inferiorly with good visualization of the bladder. The bladder blade was inserted. The vesicouterine peritoneum was identified, grasped with the pickup, and entered sharply with the Metzenbaum scissors. This incision was extended bilaterally, and the bladder flap was created digitally. The bladder blade was reinserted. The lower uterine segment was incised in a transverse fashion with the scalpel. Upon entering the amniotic sac there was moderate amount of clear amniotic fluid. The infant was found to be in a single footling breech presentation. The was delivered by total breech extraction. The nose and mouth were suctioned with bulb suction. The remainder of the body delivered without difficulty. The cord was double clamped and cut after one minute. The infant was handed off to waiting RN and RT. Pitocin was given in the IV fluids. The placenta was delivered by expression. The uterus was cleared of all clots and debris. The uterine incision was repaired with #1 chromic in a running interlocking fashion, and a second layer the same suture was used for an imbricating layer. Hemostasis was achieved. The tubes and ovaries were examined and were found to be normal. The gutters were cleared of all clots and debris. The bladder flap was reapproximated using 2-0 Vicryl in a running fashion. The parietal peritoneum was closed using 2-0 Vicryl in a running fashion. The fascia was reapproximated using 0 Vicryl in a running fashion. The subcutaneous layer was copiously irrigated with warm normal saline. 5 simple interrupted sutures of 3-0 Vicryl were placed to reapproximate the subcutaneous layer. The skin was closed with 4-0 Monocryl in a subcuticular fashion. Steri-Strips were placed. An Aquacel dressing was placed. The uterus was expressed of a small amount of old blood. Sponge, lap, and instrument counts were correct x-2. The patient tolerated the procedure well, and was taken to PACU in stable condition. Complications: none [place] Baby 1: Infant Gender: Female Presentation: breech Details: footling (Single) Placental Delivery Description: Expressed Cord Vessel Description: 3 Vessels and Clamped/Cut (after one minute) score (1 min): 9 score (5 min): 9 weight: 6 lb 15.7 oz Post-operative Condition: stable Disposition: PACU Aftercare: routine postop
[2022-09-24] MEDS: TRANEXAMIC ACID 1,000 MG in SODIUM CHLORIDE 0.9% 100 ML 200 MG IV (11:00)
[2022-09-24] MEDS: CARBOPROST 250 MCG/ML AMPUL IM (11:02)
[2022-09-24] MEDS: OXYTOCIN PREMIX 30 UNIT/500 ML PLAST..BAG 999 UNIT IV (11:07)
--- NOTE | 2022-09-24 11:20 | SUR.OPER ---
Lithotomy on padded OR bed, head on pillow, arms secured on padded arm boards at <90 degrees abduction. Legs secured in padded yellow fins stirrups.
--- NOTE | 2022-09-24 11:59 | SUR.OPER ---
all items soaked in blood were given to OB RN to help estimate blood loss
--- NOTE | 2022-09-24 12:00 | P.EN_ITS ---
Event Note Date Patient Seen: 09/24/22 Time Patient Seen: 10:53 Event Note (Rapid Response, Code, or fall): Late entry at 12 noon Called to see patient for hemorrhage. Upon arrival to the patient's room she was flat in bed, pale, but still responsive to voice. Initial blood pressure was 50's/38, next blood pressure was 40s over 20s. On examination patient found to have a large amount of blood clots on the Chux underneath. Her fundus was boggy. Rapid response team alejandra bridges Hemabate and TXA were ordered and given. 2 units of unmatched 0 neg blood were ordered. Second IV placed. With sterile gloved hand, a large amount of clot were removed from the lower uterus. The upper uterus could not be reached. A decision was made to proceed to a suction D and C and Bakri balloon placement in the operating room.
--- NOTE | 2022-09-24 12:03 | SUR.OPER ---
Addendum entered by Latanya Jimenez R.N. 09/24/22 12:06: anesthesia checked pt and pertinent information to give blood Original Note: due to the urgent situation blood was given but was not scanned, 1st bag ended at 1134 , second bag started at 1135 and ended at 1150
[2022-09-24 12:22] LABS: Add Manual Diff / Slide Review NO; Basophils Absolute Auto 0 /uL (0-100); Basophils Percent Auto 0.2 % (0-2); Eosinophils Absolute Auto 100 /uL (0-450); Eosinophils Percent Auto 1.4 % (2-4); Hemoglobin 8.2 g/dL (12.0-16.0); Lymphocytes Absolute Auto 1300 /uL (1100-4500); Lymphocytes Percent Auto 12.1 % (25-40); Mean Corpuscular HGB Conc 34.3 % (30-36); Mean Corpuscular Hemoglobin 30.7 PG (26-34); Mean Corpuscular Volume 89.3 fL (80-100); Monocytes Absolute Auto 700 /uL (0-900); Monocytes Percent Auto 6.4 % (3-14); Neutrophils Absolute Auto 8400 /uL (1500-7000); Neutrophils Percent Auto 79.9 % (50-75); Platelet Count 125 X10^3/uL (150-400); Red Blood Cell Count 2.68 X10^6/uL (4.0-5.2); Red Cell Distribution Width 13.1 % (11.6-14.8); White Blood Cell Count 10.5 X10^3/uL (4.5-11.0)
[2022-09-24 12:30] LABS: INR 1.1 (0.9-1.3); Prothrombin Time 12.8 SECONDS (10.1-12.7)
[2022-09-24 12:31] LABS: Fibrinogen 256 mg/dL (211-428)
[2022-09-24 12:33] LABS: BUN Creatinine Ratio 14.3 (6-22); Blood Urea Nitrogen 7 mg/dL (7-17); Calcium 7.3 mg/dL (8.4-10.2); Carbon Dioxide 20 mmol/L (22-32); Chloride 107 mmol/L (98-107); Estimated Glomerular Filt Rate > 60 mL/min (>60); Glucose 69 mg/dL (70-100); HEMOLYSIS < 15 (0-50); PTT Partial Thromboplastin Tim 24 SECONDS (26-36); Potassium 4.6 mmol/L (3.4-5.1); Sodium 133 mmol/L (137-145)
--- NOTE | 2022-09-24 14:54 | PM.GYNOP.1 ---
Operative Date/Time/Diagnoses Date of procedure: 09/24/22 Time of procedure: 11:45 Pre-op diagnosis: hemorrhage Uterus full of clot Post-op diagnosis: same Procedure & Clinicians Procedure: Procedures Operation Date: 09/24/22 07:45 Actual Procedure Side Surgeon p Section and cerclage removal Faustina Kelley MD Operation Date: 09/24/22 11:15 Actual Procedure Side Surgeon p Suction Dilation and Curettage with bakeri balloon placement Faustina Kelley MD Indications: hemorrhage Surgeon: Faustina Kelley Anesthesia Type: General Operative Notes Findings: Large amount of clot in the uterus Closure Type: not applicable Specimen(s): none Applied: other (Bakri balloon placed) Estimated blood loss (mL): 2,590 Blood products transfused: packed red blood cells (2 units) Procedure in detail: The patient was taken to the operating room emergently where she was placed in the dorsal supine position. After general endotracheal anesthesia was achieved, she was placed in the dorsal lithotomy position, and prepped and draped in the usual sterile fashion. A time-out was performed. A bivalve speculum was placed into the vagina and the anterior lip of the cervix was grasped with a ring forcep. Manual removal of a large amount of clot from the right fundus of the uterus was performed. A #14 suction curette then passed easily into the uterine cavity. After several passes with suction there was mostly blood. A Bakri balloon was placed on a ring forcep and placed at the fundus of the uterus. It was filled with 150 cc of sterile saline. This was connected to a grenade. A Villagran catheter was left in place. Estimated blood loss both in the operating room and what patient lost on labor and delivery was 2950 cc. Sponge, lap, and instrument counts were correct x2. The patient tolerated the procedure well, and was taken to PACU in stable condition. Complications: none Post-operative Condition: stable Disposition: PACU Plan for aftercare: To the Center after Recovery
--- NOTE | 2022-09-24 15:20 | PC.NURSE ---
rapid response called @1056, blood infusing for PP hemmorhage @1102, unable to obtain to temp r/t emergency response
--- NOTE | 2022-09-24 15:23 | PC.NURSE ---
1109- pt emergently transferred to OR with 1st unit of blood infusing, see anesthesia record for VS
--- NOTE | 2022-09-24 15:27 | PC.NURSE ---
2nd unit of blood started in OR see anesthesia record
[2022-09-24] MEDS: KETOROLAC 30 MG/ML VIAL IV (16:47)
[2022-09-24] MEDS: ACETAMINOPHEN 325 MG TABLET 650 MG PO ×2 (16:47→22:58)
[2022-09-24] MEDS: LACTATED RINGERS 1,000 ML 100 ML IV (20:15)
[2022-09-24 20:27] LABS: Add Manual Diff / Slide Review NO; Basophils Absolute Auto 0 /uL (0-100); Basophils Percent Auto 0.4 % (0-2); Eosinophils Absolute Auto 200 /uL (0-450); Eosinophils Percent Auto 2.1 % (2-4); Hematocrit 24.8 % (36-46); Hemoglobin 8.6 g/dL (12.0-16.0); Lymphocytes Absolute Auto 1700 /uL (1100-4500); Lymphocytes Percent Auto 18.3 % (25-40); Mean Corpuscular HGB Conc 34.7 % (30-36); Mean Corpuscular Hemoglobin 30.6 PG (26-34); Mean Corpuscular Volume 88.2 fL (80-100); Monocytes Absolute Auto 700 /uL (0-900); Monocytes Percent Auto 7.5 % (3-14); Neutrophils Absolute Auto 6900 /uL (1500-7000); Neutrophils Percent Auto 71.7 % (50-75); Platelet Count 135 X10^3/uL (150-400); Red Blood Cell Count 2.81 X10^6/uL (4.0-5.2); Red Cell Distribution Width 13.4 % (11.6-14.8); White Blood Cell Count 9.6 X10^3/uL (4.5-11.0)
[2022-09-25] MEDS: OXYCODONE IR 5 MG TABLET PO ×4 (00:28→18:52)
[2022-09-25] MEDS: ACETAMINOPHEN 325 MG TABLET 650 MG PO ×3 (05:00→23:05)
[2022-09-25] MEDS: OXYCODONE IR 5 MG TABLET 10 MG PO (05:04)
[2022-09-25 07:12] LABS: Hematocrit 22.7 % (36-46); Hemoglobin 7.9 g/dL (12.0-16.0)
[2022-09-25 09:13] VITALS: BP 138/54; PULSE 109
[2022-09-25] MEDS: LABETALOL 100 MG TABLET 200 MG PO (09:13)
[2022-09-25] MEDS: DOCUSATE 100 MG CAPSULE PO (09:13)
[2022-09-25] MEDS: PRENATAL VIT,CALC/IRON/FOLIC 1 TABLET 1 TAB PO (09:13)
[2022-09-25] MEDS: LACTATED RINGERS 1,000 ML 100 ML IV (09:17)
[2022-09-25] MEDS: IRON SUCROSE 300 MG in SODIUM CHLORIDE 0.9% 250 ML 176.667 MG IV (15:10)
--- NOTE | 2022-09-25 17:43 | PM.OBPN.1 ---
Subjective - OB Subjective Patient comments: no complaints, pain well controlled and tolerating diet baby status: doing well and nursing well feeding status: exclusively breast feeding Date Patient Seen: 09/25/22 Time Patient Seen: 13:45 Interval history: Postop day # 1 status post primary low-transverse section with returned to the operating room for evacuation of uterine clots after uterine atony with hemorrhage and placement of Bakri balloon. The balloon was deflated and there was no increase in bleeding. The Villagran catheter was removed and she has been able to void without the catheter. No dizziness or lightheadedness. going well. No increase in bleeding. Tolerating a diet. No nausea or vomiting. Pain well controlled. Exam Vital Signs (past 8 hours): Oxygen Delivery Method Room Air Narrative Exam Narrative: Generally:Patient is sitting up in bed, holding infant, no acute distress Lungs: Clear to auscultation bilaterally Cardiovascular: Regular rate and rhythm Fundus: Firm at U -2 Incision: Clean dry and intact with Aquacel dressing Extremities: 1+ edema, negative [place] Objective Labs 09/25/22 06:35 09/24/22 12:05 Labs: Laboratory Results - last 24 hr 09/24/22 09/25/22 20:19 06:35 WBC 9.6 RBC 2.81 L Hgb 8.6 L 7.9 L Hct 24.8 L 22.7 L MCV 88.2 MCH 30.6 MCHC 34.7 RDW 13.4 Plt Count 135 L Neut % (Auto) 71.7 Lymph % (Auto) 18.3 L [place] % (Auto) 7.5 Eos % (Auto) 2.1 Baso % (Auto) 0.4 Neut # (Auto) 6900 Lymph # (Auto) 1700 [place] # (Auto) 700 Eos # (Auto) 200 Baso # (Auto) 0 Assessment & Plan Plan day: 1 Comments: Continue to follow closely for bleeding Hold BP meds as needed Anticipate D/C 09/26/22 Time Spent With Patient Time: Total time spent is greater than 50% in coordination of care (as documented) at patient's floor/unit and/or counseling patient: Time with patient: 15-24 minutes
[2022-09-25] MEDS: IBUPROFEN 600 MG TABLET PO (23:04)
[2022-09-26] MEDS: OXYCODONE IR 5 MG TABLET PO ×4 (00:14→14:03)
[2022-09-26] MEDS: IBUPROFEN 600 MG TABLET PO ×2 (05:04→14:02)
[2022-09-26 07:00] VITALS: BP 149/80; PULSE 103; RESP 10; TEMP 36.4
[2022-09-26] MEDS: DOCUSATE 100 MG CAPSULE PO (09:08)
[2022-09-26] MEDS: PRENATAL VIT,CALC/IRON/FOLIC 1 TABLET 1 TAB PO (09:08)
[2022-09-26 09:10] VITALS: TEMP 36.4
[2022-09-26] MEDS: ACETAMINOPHEN 325 MG TABLET 650 MG PO ×2 (09:10→09:21)
[2022-09-26 09:12] VITALS: BP 149/80; PULSE 103
[2022-09-26] MEDS: LABETALOL 100 MG TABLET 200 MG PO (09:12)
[2022-09-26] MEDS: LANOLIN OINT 7 GM 1 APPLIC TOP (14:02)
--- NOTE | 2022-09-28 23:36 | PM.OBDS.1 ---
Discharge Providers Provider Date of admission: 09/24/22 05:30 Discharge Date: 09/26/22 Primary care physician: Jaja Pillai RN Consults: 09/24/22 10:31 Consult to Journeyman Molder Routine Comment: Discharge provider: Faustina Kelley MD Summary Hospital Course Date Patient Seen: 09/26/22 Time Patient Seen: 12:30 Diagnoses: Estimated gestational age of 37 weeks Breech presentation Chronic hypertension Primary low-transverse section hemorrhage with atony Suction D&C Placement of Bakri balloon Hospital Course: Patient is a 37-year-old 8 para 4 who presented on September 24, 2022 for a scheduled primary section at 37 weeks gestation due to chronic hypertension and breech presentation. She underwent this procedure without complication. Approximately 1 hour after delivery she had a hemorrhage with uterine atony. She received 2 units of blood. She returned to the operating room for evacuation of uterine clots, suction D&C, and placement of Bakri balloon. QBL 2500 cc. Her hematocrit dropped to 22. She was asymptomatic. She did not receive anymore blood. The remainder of her course was unremarkable. She voided without the catheter once it was removed. She was tolerating a diet. Her pain was well controlled. was going well. She was ambulating independently. She was discharged home on day #2. Peripartum Data Infant Delivery Method: Section Procedures: Spinal anesthesia Primary low-transverse section Suction D&C, evacuation of uterine clots Bakri balloon placement complications: uterine atony (2500cc blood loss) 1: Gender: Female Disposition of : home Status at Discharge Cognitive/behavioral status at discharge: oriented Functional status at discharge: independent ambulation Overall status at discharge: patient is progressing back to baseline Time Spent with Patient Time attestation: Total time spent providing and/or coordinating discharge services: Time spent: Greater than 30 minutes Objective Labs 09/25/22 06:35 09/24/22 12:05 Exam Vital Signs (past 8 hours): Oxygen Delivery Method Room Air Narrative Exam Narrative: Generally: Patient is sitting up in bed, no acute distress Lungs: Clear to auscultation bilaterally Cardiovascular: Regular rate and rhythm Fundus: Firm at U -2 Incision: Clean dry and intact with Aquacel dressing Extremities: 1+ edema, negative Homans Discharge Plan Discharge Plan Patient Disposition: Home Provider Discharge Comment: Call with fever, chills, redness or drainage around the incision, or bleeding vaginally soaking a pad Call with any leg calf pain or red streaks up the calf Tylenol 650 mg every 6 hours as needed Ibuprofen 600 mg every 6 hours as needed Iron supplements once or twice a day Stool softener once or twice a day until bowel movements returned to normal Push oral fluids Red meat and green leafy vegetables Discharge orders & Medications Prescriptions: New oxycodone 5 mg tablet 5 mg PO Q4H PRN (Reason: pain) Qty: 20 0RF Continued labetalol 200 mg tablet See Rx Instructions .ROUTE .COMPLEX Qty: 180 0RF Dose Instruction: TAKE 1 TABLET BY MOUTH TWICE DAILY Rx Instructions: TAKE 1 TABLET BY MOUTH TWICE DAILY prenat.vits,bakari,ojh-skuq-hekbg Tablet 1 tab PO DAILY Enbrel 50 mg/mL (1 mL) syringe 50 mg SUBCUT QWEEK Discontinued aspirin [Adult Aspirin Regimen] 81 mg tablet,delayed release (DR/EC) 81 mg PO DAILY nifedipine 30 mg tablet extended release See Rx Instructions .ROUTE .COMPLEX Qty: 90 3RF Dose Instruction: TAKE 1 TABLET BY MOUTH DAILY Rx Instructions: TAKE 1 TABLET BY MOUTH DAILY Follow up/Referrals: Faustina Kelley MD [Physician] - 09/30/22 2:00 pm Diet/Activity/Treatments Diet: Regular Activity: No heavy lifting, nothing more than the baby or a gal of milk Nothing in the vagina for 6 weeks Skin/Wound/Dressing Care Report to your healthcare provider any signs of infection, such as:: chills, fever, increased pain, unusual drainage and unusual redness Dressing: Do not remove Visit Report/Discharge Packet Instructions: DI for Hemorrhage, DI for , DI for Prescription Opioid Use Stand Alone Forms: Discharge: Care, Patient Portal/API, Stroke Signs & Symptoms Discharge Data Primary Care Provider: Jaja Pillai Discharges patient from system. Discharge Date/Time: 09/26/22 14:20
== END 2022-09-26 14:20 | disposition home or self-care (01) | DRG 786 ==
PROVIDERS: Anesthesiology; Admitting Provider Obstetrics & Gynecology; PCP Nurse Practitioner Family; Referring Provider Obstetrics & Gynecology; Visit Provider Obstetrics & Gynecology
PROC: 10D00Z1 Extraction of Products of Conception, Low, Open Approach (ICD-10-PCS; CPT 59514; principal; 2022-09-24 07:45)
DX: O64.8XX0 Obstructed labor due to other malposition and malpresentation, not applicable or unspecified (principal); O34.33 Maternal care for cervical incompetence, third trimester; O72.2 Delayed and secondary postpartum hemorrhage; O10.913 Unspecified pre-existing hypertension complicating pregnancy, third trimester; O65.5 Obstructed labor due to abnormality of maternal pelvic organs; O13.4 Gestational [pregnancy-induced] hypertension without significant proteinuria, complicating childbirth; Z3A.37 37 weeks gestation of pregnancy; Z37.0 Single live birth; Z3A.36 36 weeks gestation of pregnancy
CPT/HCPCS: 36415; 36430; 59025; 59050; 59510; 59514; 59871; 59899; 80048; 85014; 85018; 85025; 85384; 85610; 85730; 86850; 86900; 86901; P9016; J0131; J0690; J1756; J1885; J2274; J2405; J2590; J2704; J3010

== ENCOUNTER → 2022-09-30 14:33 | Outpatient (CLI) | payer OTHER, SELFPAY ==
[2022-09-30 16:14] LABS: Prolactin 178.6 ng/mL (3.0-18.6)
[2022-09-30 16:17] LABS: Free T4, Direct Thyroxine 0.87 ng/dL (0.78-2.19)
[2022-09-30 16:31] LABS: Thyroid Stimulating Hormone 2.99 uIU/mL (0.47-4.68)
== END ==
PROVIDERS: PCP Nurse Practitioner Family; Referring Provider Obstetrics & Gynecology; Visit Provider Obstetrics & Gynecology
DX: O72.1 Other immediate postpartum hemorrhage (principal)
CPT/HCPCS: 36415; 84146; 84439; 84443

== ENCOUNTER 2022-10-04 11:25 | Observation (INO) | payer OTHER, SELFPAY ==
[2022-10-04] MEDS: NIFEdipine 10 MG CAPSULE PO (12:00)
[2022-10-04] MEDS: NIFEdipine 30 MG TAB ER PO (12:00)
[2022-10-04 12:50] LABS: Add Manual Diff / Slide Review NO; Basophils Absolute Auto 0 /uL (0-100); Basophils Percent Auto 0.6 % (0-2); Eosinophils Absolute Auto 300 /uL (0-450); Eosinophils Percent Auto 4.4 % (2-4); Hematocrit 25.4 % (36-46); Hemoglobin 8.6 g/dL (12.0-16.0); Lymphocytes Absolute Auto 1500 /uL (1100-4500); Lymphocytes Percent Auto 22.7 % (25-40); Mean Corpuscular HGB Conc 33.9 % (30-36); Mean Corpuscular Volume 88.6 fL (80-100); Monocytes Absolute Auto 500 /uL (0-900); Monocytes Percent Auto 7.7 % (3-14); Neutrophils Absolute Auto 4300 /uL (1500-7000); Neutrophils Percent Auto 64.6 % (50-75); Platelet Count 222 X10^3/uL (150-400); Red Blood Cell Count 2.86 X10^6/uL (4.0-5.2); Red Cell Distribution Width 13.4 % (11.6-14.8); White Blood Cell Count 6.6 X10^3/uL (4.5-11.0)
[2022-10-04 12:51] LABS: Alanine Aminotransferase 48 IU/L (<35); Albumin 3.7 g/dL (3.5-5.0); Albumin Globulin Ratio 1.3 (1.0-2.8); Alkaline Phosphatase 63 U/L (38-126); Aspartate Aminotransferase 32 IU/L (14-36); BUN Creatinine Ratio 16.7 (6-22); Bilirubin Total 0.2 mg/dL (0.2-1.3); Blood Urea Nitrogen 13 mg/dL (7-17); Calcium 8.9 mg/dL (8.4-10.2); Carbon Dioxide 25 mmol/L (22-32); Chloride 107 mmol/L (98-107); Estimated Glomerular Filt Rate > 60 mL/min (>60); Globulin 2.8 g/dL (1.7-4.1); Glucose 83 mg/dL (70-100); HEMOLYSIS < 15 (0-50); Sodium 140 mmol/L (137-145); Total Protein 6.5 g/dL (6.3-8.2)
[2022-10-04 13:19] LABS: Protein (Total) Urine Random 7 mg/dL (0-12)
[2022-10-04 13:29] VITALS: BP 139/83; PULSE 91
[2022-10-04] MEDS: LABETALOL 100 MG TABLET 200 MG PO (13:29)
--- NOTE | 2022-10-04 14:46 | PC.NURSE ---
Report recieved from Darby Russo RN, Pt here today for increased BPs taken on home machine-pt with no other features-feeling strange at Home. Pt to be DCed to home per Gina as BPs habve stabilized-(see Obix) into normal range. Pt feeling good. right now-Pt's labs all WNL and reported to OB by this RN-Pt to be cautious and cont to take Labetolol TID 200mg also add Nifedapine daily per OB-Pt has home RX-Pt educated to come back t hospital if any concerns at all-call OB
--- NOTE | 2022-10-05 03:30 | P.TNLD_ITS ---
[facility] Medical History Encounter for supervision of other normal , first trimester Hypertension PPD screening test (~2015) Psoriatic arthritis Viral respiratory illness Surgical History Anesthesia History of ankle surgery (~1997) Galva teeth extracted Family History Mother Hypertension Hyperlipidemia Diabetes mellitus Father Hypertension Hyperlipidemia Grandmother Hypertension CVA (cerebral vascular accident) Grandfather Pancreatitis Social History marital status: number of children: 3 household members: spouse and children lives independently: Yes housing: house pets and animals: No education level: college ([employer]'s degree) occupational status: employed current occupational exposures/hazards: Yes (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 6 months ago seatbelt use: always water heater temp set < 120 deg: No working smoke detector in home: Yes fire extinguisher in home: Yes carbon monox detector in home: Yes firearms in home: No do you feel safe at home: Yes Smoking Status: Never smoker second hand exposure: No alcohol intake: former substance use type: does not use during the past year weight has: other (Major weight changes up and down with medication changes) well-balanced diet: daily or most days daily servings fruits/ve-4 caffeine: Yes Type(s) of exercise: none Objective Labs 10/04/22 11:55 10/04/22 11:55 Labs: Laboratory Results - last 24 hr 10/04/22 10/04/22 10/04/22 11:40 11:55 11:55 WBC 6.6 RBC 2.86 L Hgb 8.6 L Hct 25.4 L MCV 88.6 MCH 30.0 MCHC 33.9 RDW 13.4 Plt Count 222 Neut % (Auto) 64.6 Lymph % (Auto) 22.7 L Woodson % (Auto) 7.7 Eos % (Auto) 4.4 H Baso % (Auto) 0.6 Neut # (Auto) 4300 Lymph # (Auto) 1500 Woodson # (Auto) 500 Eos # (Auto) 300 Baso # (Auto) 0 Sodium 140 Potassium 4.0 Chloride 107 Carbon Dioxide 25 BUN 13 Creatinine 0.78 Estimated GFR > 60 BUN/Creatinine Ratio 16.7 Glucose 83 Calcium 8.9 Total Bilirubin 0.2 AST 32 ALT 48 H Alkaline Phosphatase 63 Total Protein 6.5 Albumin 3.7 Globulin 2.8 Albumin/Globulin Ratio 1.3 U Random Total Protein 7
== END 2022-10-04 14:58 | disposition home or self-care (01) ==
PROVIDERS: Admitting Provider Obstetrics & Gynecology; PCP Nurse Practitioner Family; Referring Provider Obstetrics & Gynecology; Visit Provider Obstetrics & Gynecology
DX: O90.89 Other complications of the puerperium, not elsewhere classified (principal); R03.0 Elevated blood-pressure reading, without diagnosis of hypertension
CPT/HCPCS: 80053; 84156; 85025; G0378; G0379

== ENCOUNTER → 2023-03-19 15:57 | Outpatient (CLI) | payer OTHER, SELFPAY ==
--- NOTE | 2023-03-19 | DI.US.S_ITS ---
PROCEDURE: US ABDOMEN LIMITED INDICATIONS: ELEVATED LIVER ENZYMES TECHNIQUE: Real-time focused scanning was performed of the abdomen, with image documentation. COMPARISON: None. FINDINGS: Liver is enlarged measuring 19.4 cm maximum dimension is diffusely increased in echogenicity. The gallbladder appears normal without gallstones or gallbladder wall thickening. There is no pericholecystic fluid. Sonographic Khan sign is negative. No intrahepatic or extrahepatic biliary ductal dilatation. Common bile duct measures 3 mm in diameter. Visualized portions of the pancreas are unremarkable. No free fluid in the right upper quadrant. IMPRESSION: Hepatomegaly and diffusely increased hepatic echogenicity are seen, most commonly secondary to diffuse hepatic steatosis but other sources of hepatocellular disease cannot be excluded. Recommend clinical correlation. Approved by: Julius Hayes M.D. on 03/19/2023 at 20:49
== END ==
PROVIDERS: PCP Nurse Practitioner Family; Referring Provider Nurse Practitioner Family; Visit Provider Nurse Practitioner Family
DX: R74.01 Elevation of levels of liver transaminase levels (principal); R16.0 Hepatomegaly, not elsewhere classified
CPT/HCPCS: 76705

== ENCOUNTER → 2023-08-04 08:49 | Outpatient (CLI) | payer OTHER, SELFPAY ==
--- NOTE | 2023-08-04 08:49 | DI.US.S_ITS ---
LIMITED ULTRASOUND OF LEFT BREAST: 08/04/2023 CLINICAL: Palpable left breast lump x 2 weeks. Currently (preg 4) x 10 months. Hx mastitis x 2 ('felt nothing like this' per pt). CBE done but per pt doc did not palpate correct spot.. No prior exams were available for comparison. Color flow and real-time ultrasound of the left breast 2 o'clock region were performed. Michael scale images of the real-time examination were reviewed. There is a 3.2 cm x 3 cm x 2.8 cm irregular mass in the left breast at 2 o'clock posterior depth 8 cm from the nipple. This irregular mass is hypoechoic. This correlates as palpated. Color flow imaging demonstrates that there is vascularity present. There also is a 2.5 cm oval lymph node with uniform cortical thickening in the left axillary tail. This oval lymph node is hypoechoic with fatty hilum. Color flow imaging demonstrates that there is vascularity present. Cortex measures up to 1.8 cm. IMPRESSION: INCOMPLETE: NEEDS ADDITIONAL IMAGING EVALUATION The 3.2 cm x 3 cm x 2.8 cm irregular mass in the left breast at 2 o'clock posterior depth is highly suggestive of malignancy. -An ultrasound guided biopsy is recommended. The 2.5 cm oval lymph node with cortical thickening in the left axilla is highly suggestive of malignancy. -An ultrasound guided biopsy is recommended. Exam findings were discussed with the patient. A mammogram is recommended and will immediately follow. This exam was interpreted at Station ID: [id number]. Electronically Signed By: Max Ramírez M.D. slc/:08/04/2023 10:20:14 Ultrasound BI-RADS: 0 Indeterminate
--- NOTE | 2023-08-04 08:49 | DI.MG.S_ITS ---
BILATERAL DIGITAL DIAGNOSTIC MAMMOGRAM 3D/2D: 08/04/2023 CLINICAL: Palpable left breast lump. Comparison is made to exam dated: 08/04/2023 [facility]. Both breasts are heterogeneously dense, which may obscure small masses (category c / 51-75% glandular tissue). There is an irregular mass in the left breast at 2 o'clock posterior depth. This correlates as palpated and preceding ultrasound. No other significant masses, calcifications, or other findings are seen in either breast. IMPRESSION: HIGHLY SUGGESTIVE OF MALIGNANCY The irregular mass in the left breast is highly suggestive of malignancy. An ultrasound guided biopsy is recommended. Based on the Tyrer Cuzick model (a risk assessment model) the patient's lifetime risk is 13.1% and her 10 year risk is 1.4%. According to the ACR, ACS, and NCCN guidelines, an annual breast MRI exam along with mammogram is recommended if the patient's lifetime risk is 20% or greater. This exam was interpreted at Station ID: [id number]. NOTE: For mammograms, a report in lay terms will be sent to the patient. Approximately 15% of breast malignancies will not be visualized mammographically. In the management of a palpable breast mass, a negative mammogram must not discourage biopsy of a clinically suspicious lesion. Electronically Signed By: Max Ramírez M.D. slc/:08/04/2023 10:30:19 letter sent: Biopsy Required ACR BI-RADS Category 5: Highly suggestive of malignancy [id number]
== END ==
LOC: US 08:49
PROVIDERS: PCP Nurse Practitioner Family; Referring Provider Specialist; Visit Provider Specialist
DX: N63.21 Unspecified lump in the left breast, upper outer quadrant (principal); R92.8 Other abnormal and inconclusive findings on diagnostic imaging of breast; R92.333 Mammographic heterogeneous density, bilateral breasts; R59.0 Localized enlarged lymph nodes
CPT/HCPCS: 76642; 77066; G0279

== ENCOUNTER → 2023-08-13 12:31 | Outpatient (CLI) | payer OTHER, SELFPAY ==
--- NOTE | 2023-08-13 | DI.US.S_ITS ---
MULTIPLE ULTRASOUND GUIDED BIOPSIES LEFT BREAST USING VACUUM DEVICE WITH MARKING DEVICES INSERTED: 08/13/2023 CLINICAL: Left breast mass. PATIENT CONSENT: Risks (minor bleeding, infection, vasovagal reaction and repeat procedure), benefits and alternatives were explained to the patient and written informed consent was obtained. Correlation is made to exams dated: 08/04/2023 mammogram and 08/04/2023 [facility]. An ultrasound guided biopsy using real-time ultrasound was performed for the 3.2 cm x 3 cm x 2.8 cm mass located in the left breast at 2 o'clock posterior depth 8 cm from the nipple. The skin was prepped in the usual manner. Topical anesthetic was administered to the access site. The abnormality was approached from the lateral aspect. A biopsy needle was placed adjacent to the abnormality under ultrasound guidance. Once the needle was documented to be in the correct location, a specimen was obtained using a vacuum assisted device. A clip was inserted into the biopsy cavity. The specimen was sent to the laboratory for pathological analysis. IMPRESSION: ULTRASOUND GUIDED BIOPSY MALIGNANT Ultrasound guided biopsy of the 3.2 cm x 3 cm x 2.8 cm mass in the left breast at 2 o'clock posterior depth 8 cm from the nipple was successful. Pathology indicates malignant invasive ductal carcinoma (ID). Pathology results are concordant with imaging findings. This exam was interpreted at Station ID:[id number] Julian Davis M.D. ,/:08/19/2023 14:40:00 Entry: - 08/19/2023 15:38:52 copy to: Faustina Kelley
--- NOTE | 2023-08-13 | DI.MG.S_ITS ---
UNILATERAL LEFT DIGITAL DIAGNOSTIC MAMMOGRAM 3D/2D: 08/13/2023 CLINICAL: Post left breast ultrasound biopsy clip placement imaging. Comparison is made to exam dated: 08/04/2023 mammogram - [facility]. The left breast is heterogeneously dense, which may obscure small masses (category c / 51-75% glandular tissue). There is a 3.2 cm x 3 cm x 2.8 cm mass in the left breast at 3 o'clock posterior depth 8 cm from the nipple. There also is a 2.5 cm mass in the left axillary tail. Additionally, there is a marker clip in the appropriate position in the left breast at 3 o'clock posterior depth. This correlates as palpated. There is a surgical clip associated with the mass. No other significant masses or calcifications are seen in the breast. IMPRESSION: POST PROCEDURE MAMMOGRAM FOR MARKER PLACEMENT The 3.2 cm x 3 cm x 2.8 cm mass in the left breast at 3 o'clock posterior depth needs additional evaluation. The 2.5 cm mass in the left axillary tail needs additional evaluation. There was a successful marker clip placement in the left breast at 3 o'clock posterior depth. Based on the Tyrer Cuzick model (a risk assessment model) the patient's lifetime risk is 13.1% and her 10 year risk is 1.4%. According to the ACR, ACS, and NCCN guidelines, an annual breast MRI exam along with mammogram is recommended if the patient's lifetime risk is 20% or greater. This exam was interpreted at Station ID: [id number]. NOTE: For mammograms, a report in lay terms will be sent to the patient. Approximately 15% of breast malignancies will not be visualized mammographically. In the management of a palpable breast mass, a negative mammogram must not discourage biopsy of a clinically suspicious lesion. Electronically Signed By: Julian Cooper M.D. pc/:08/13/2023 16:19:35 copy to: Faustina Kelley ACR BI-RADS Category Post-procedure mammogram for marker placement
--- NOTE | 2023-08-13 | PATH_ITS ---
[facility] Accession Number: [id number] No. of containers..01 Tissue . 01 Material submitted: . axillary tail of breast - LEFT AXILLARY NODE . 01 Diagnosis: A. LEFT AXILLARY NODE, BIOPSY: Carcinoma, consistent with breast primary, involving lymphoid tissue. Largest size of contiguous tumor: At least 3.5 mm. . COMMENT: All 3 cores available for examination are involved by carcinoma. [facility] 08/18/2023 1026 Local . 01 Comment: The preliminary findings on this case are reported to Dr. Najera's office (directly to Nadine Romo RN) on 08/18/23 at 10:15 am. . 01 Electronically signed: . Romy Cook MD, Pathologist NPI- [id number] . 01 Gross description: . Received in formalin, labeled with two identifiers and axilla node, are three bhatt to brown needle core biopsies measuring 0.7-1.1 cm in length by 0.1 cm in diameter. The specimen is submitted in cassette A1. ([id number]) /[facility] 08/14/2023 1607 Local . 01 Microscopic: . A panel of immunostains is performed on block A1 in order to evaluate the carcinoma involving the lymphoid tissue, with appropriately staining external controls; the findings are summarized below and are in support of the diagnosis: . ALANNAH: Diffusely positive. GATA3: Diffusely positive, in support of breast primary. . * This test was developed and its performance characteristics determined by [facility]. It has not been cleared or approved by the U.S. Food and Drug Administration. The FDA has determined that such clearance or approval is not necessary. This test is used for clinical purposes. It should not be regarded as investigational or for research. . 01 Pathologist provided ICD-10: C77.9 . 01 CPT . 528275, Q59315, O52054 Performed at: 01 [facility] [address] [place] [address], [place], [place] [id number] MD Mukesh Mora MD Phone: [phone]
--- NOTE | 2023-08-13 | PATH_ITS ---
[facility] Accession Number: [id number] No. of containers..01 Tissue . 01 Material submitted: . breast - LEFT BREAST MASS 2:00 8CMFN . 01 Diagnosis: A. LEFT BREAST MASS, 2 O'CLOCK, 8 CM FROM NIPPLE, BIOPSY: Invasive (ductal) carcinoma, grade 3 of 3 (Centre combined histologic grade, total score 8/9) with the following features: 1. Nuclear pleomorphism: High. (3/3) 2. Mitotic rate: Intermediate (at least), (at least 2/3); see comment. 3. Tubular differentiation: None. (3/3) 4. Size of invasive carcinoma: Present on multiple cores, single largest dimension of at least 1.2 cm. 5. Ductal carcinoma in situ: Not definitively identified. 6. Calcifications: Not present. 7. Lymphatic invasion: Not definitively seen. 8. Prognostic markers: - Estrogen receptor status: Positive (95%, Strong). - Progesterone receptor status: Positive (5%, Moderate). - HER2 status: POSITIVE for protein overexpression by immunohistochemistry (3+). . COMMENT: Extensive crushing artifact limits histologic assessment; mitotic count is at least intermediate. [facility] 08/18/2023 1037 Local . 01 Comment: The preliminary findings on this case are reported to Dr. Najera's office (directly to Nadine Romo RN) on 08/18/23 at 10:15 am. . 01 Electronically signed: Sam Cook MD, Pathologist NPI- [id number] . 01 Gross description: . Received in formalin, labeled with two identifiers and US bx breast, are multiple yellow to bhatt soft tissue fragments admixed with hemorrhagic material aggregating to 2.5 x 1.3 x 0.2 cm. Filtered and submitted entirely in cassette A1. . The specimen was removed on 08/13/2023 at 13:23. Time in formalin not provided. Cold ischemic time cannot be calculated. Total fixation time is approximately 48 hours. ([id number]) /[facility] 08/14/2023 1609 Local . 01 Microscopic: . An immunohistochemical panel is performed on block A1 in order to evaluate the invasive carcinoma, with appropriately staining external controls. The invasive carcinoma demonstrates the following pattern: . ALANNAH: Diffusely positive. GATA3: Diffusely positive, in support of breast primary. . Predictive marker immunohistochemical studies are performed on block A1 with the invasive carcinoma showing the following results: . Estrogen receptor (SP1): Positive (more than 95% tumor cells staining, staining intensity: Strong). Progesterone receptor (1E2): Positive (5% tumor cells staining; staining intensity: Moderate). Her2 (4B5): POSITIVE for protein overexpression by immunohistochemistry (3+). . Internal controls for TX and ER are present. Cold ischemic time is <5 minutes. The scoring criteria for breast biomarkers by immunohistochemistry is based on the ASCO/CAP guidelines (Syeda AC et al, J Clin Oncol: 2017 10;36(20):5994-6285 and Jain ME et al, Arch Pathol Lab Med: 2009;134(6):907-22). Deparaffinized sections of formalin fixed tissue (along with appropriate positive controls) are incubated with the above antibody(s). Using the automated [place] stainer, tissue is incubated with the designated antibody which is then localized by a non-biotin, dual polymer detection system. The external controls are reviewed for appropriate reactivity and found to be adequate. Results on the target cell population are indicated above. These tests have not been validated on decalcified tissue. This test was developed and its performance characteristics determined by [facility] [facility]. It has not been cleared or approved by the U.S. Food and Drug Administration. The FDA has determined that such clearance or approval is not necessary. This test is used for clinical purposes. It should not be regarded as investigational or for research. . 01 Pathologist provided ICD-10: C50.912 . 01 CPT . 610870, D05229, P90985, 482965, 651196, 108381 Performed at: 01 [facility] [address] [address] [facility], [place], [place] [id number] MD Mukesh Mora MD Phone: [phone]
--- NOTE | 2023-08-13 12:53 | DI.US.S_ITS ---
Patient Name: CHADD HARVEY date: 1985 Sex: F Attending Physician: Dania Indications: Date: 08/19/2023 14:38 At the request of: WILFRID GONZALEZ Procedure: US biopsy LT axilla ULTRASOUND GUIDED BIOPSY LEFT BREAST: 08/13/2023 CLINICAL: Left axillary node biopsy. PATIENT CONSENT: Risks (minor bleeding, infection, vasovagal reaction and repeat procedure), benefits and alternatives were explained to the patient and written informed consent was obtained. Correlation is made to exams dated: 08/04/2023 mammogram and 08/04/2023 [facility]. An ultrasound guided biopsy using real-time ultrasound was performed for the 2.5 cm lymph node located in the left axillary tail. The skin was prepped in the usual manner. The abnormality was approached from the craniocaudal aspect. A biopsy needle was placed adjacent to the abnormality under ultrasound guidance. Once the needle was documented to be in the correct location, a specimen was obtained using 18G Tenmo. The specimen was sent to the laboratory for pathological analysis. IMPRESSION: ULTRASOUND GUIDED BIOPSY MALIGNANT Ultrasound guided biopsy of the 2.5 cm lymph node in the left axillary tail was performed. 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 Pathology results are concordant with imaging findings. This exam was interpreted at Station ID: [id number]. Julian messina,kimberli/:08/19/2023 14:38:33 copy to: Faustina Kelley
== END ==
PROVIDERS: PCP Nurse Practitioner Family; Referring Provider Specialist; Visit Provider Specialist
DX: C50.412 Malignant neoplasm of upper-outer quadrant of left female breast (principal); C77.3 Secondary and unspecified malignant neoplasm of axilla and upper limb lymph nodes; R92.332 Mammographic heterogeneous density, left breast; Z17.0 Estrogen receptor positive status [ER+]
CPT/HCPCS: 19083; 38505; 76942; 77065

== ENCOUNTER 2023-08-27 12:58 | Day surgery (SDC) | payer OTHER, SELFPAY ==
[2023-08-23 12:02] VITALS: BMI 38.2
--- NOTE | 2023-08-27 | DI.RAD.S_ITS ---
PROCEDURE: XR CHEST 1V INDICATIONS: post op for port-a-cath TECHNIQUE: One view of the chest was acquired. COMPARISON: [facility], CR, XR CHEST 2V, 04/14/2019, 10:24. FINDINGS: Surgical changes and devices: Right chest wall Port-A-Cath tip is in SVC. Lungs and pleura: Lungs are clear. No pleural effusions or pneumothorax. Mediastinum: Mediastinal contours appear normal. Heart size is normal. Bones and chest wall: No suspicious bony lesions. Overlying soft tissues appear unremarkable. IMPRESSION: Right chest wall Port-A-Cath tip is in SVC. No focal infiltrate, pleural effusion or pneumothorax. Dictated by: Frankie Godinez M.D. on 08/27/2023 at 16:55 Approved by: Frankie Godinez M.D. on 08/27/2023 at 16:55
[2023-08-27 13:12] VITALS: BMI 36.9
[2023-08-27 13:18] VITALS: BP 142/91; PULSE 96; RESP 18; TEMP 37; O2SAT 100
--- NOTE | 2023-08-27 13:23 | PM.PREOP ---
Pre-operative Note Interval Note History & Physical reviewed/Exam performed by Physician: Yes Changes to H&P: No
[2023-08-27] MEDS: LACTATED RINGERS 1,000 ML 42 ML IV (13:29)
[2023-08-27] MEDS: CEFAZOLIN 2 GM/100 ML PREMIX 100 ML IV (14:17)
[2023-08-27] MEDS: BUPIVACAINE 0.25% (PF) VIAL 30 ML INJ (14:42)
[2023-08-27 15:10] VITALS: BP 129/82; PULSE 85; RESP 14; TEMP 36.8; O2SAT 100
[2023-08-27 15:15] VITALS: BP 124/74; PULSE 81; RESP 15; O2SAT 100
[2023-08-27 15:20] VITALS: BP 129/82; PULSE 83; RESP 13; O2SAT 100
--- NOTE | 2023-08-27 15:24 | P.OP_ITS ---
Operative Date/Time/Diagnoses Date of procedure: 08/27/23 Time of procedure: 15:24 Pre-op diagnosis: Breast cancer Post-op diagnosis: same Procedure & Clinicians Procedure: Port-A-Cath placement with ultrasound guidance Same procedure as scheduled: Yes Indications: 38-year-old woman with HER2 positive breast cancer here for Port-A-Cath place ment for the purpose of neoadjuvant therapy Surgeon: Ishan Silverio Click Yes if Unassisted: Yes Anesthesia Type: General Operative Notes Findings: Tip of the catheter projects over the SVC No pneumothorax on postoperative chest x-ray per my read Specimen(s): none sent Estimated Blood Loss (mL): 20 Procedure in detail: Patient was brought to the operating room placed supine on table. Bilateral lower extremity compressive devices were applied. General anesthesia was induced and she was intubated with an LMA. She was then prepped and draped in usual sterile fashion. Time-out was performed ensure the correct patient procedure necessary equipment within the operating room. She received 3 g of Ancef prior to incision. Under ultrasound guidance the right internal jugular vein was accessed. The first attempt the guidewire did not advance. An attempt at a R subclavian approach was made and ultimately the R IJ was successfully canulated under direct visualization. The guidewire was then threaded through the needle. Its placement was then confirmed using fluoroscopy. The dilator was then placed over the guidewire. The catheter was then inserted through the sheath. Placement was again confirmed with fluoroscopy. A subcutaneous pocket was made in the right chest wall. The tunneler device was used to move the catheter from the neck to the chest pocket. The port was attached after it was primed with heparined saline. The port was tested to ensure that it flushed easily and had good blood return. The port was then secured to the underlying fascia using interupted 0 Prolene suture. Hemostasis was achieved. The wound was irrigated with sterile saline. The subcutaneous tissues were reapproximated with the 3 0 Vicryl and then skin closed with 4-0 Monocryl. The skin was sealed with Dermabond. Patient tolerated procedure well. The sponge and instrument count at the end operation was correct. Patient emerged from general anesthesia was extubated and taken to the postoperative care unit in stable condition Complications: none Post-operative Condition: stable Disposition: same day surgery
[2023-08-27] MEDS: OXYCODONE IR 5 MG TABLET PO ×2 (15:26→15:51)
[2023-08-27 15:35] VITALS: BP 123/79; PULSE 81; RESP 14; O2SAT 99
== END 2023-08-27 15:54 | disposition home or self-care (01) ==
PROVIDERS: PCP Nurse Practitioner Family; Referring Provider Surgery; Visit Provider Surgery
PROC: (CPT 36561; principal; 2023-08-27 14:15)
DX: C50.912 Malignant neoplasm of unspecified site of left female breast (principal); Z17.0 Estrogen receptor positive status [ER+]
CPT/HCPCS: 36561; 36415; 71045; 76000; 81025; 82962; C1788; J0690; J3010

== ENCOUNTER 2023-10-18 13:14 | Emergency (ER) | payer OTHER, SELFPAY ==
[2023-10-18] VITALS (12 sets, daily range): BP systolic 114–127; BP diastolic 67–75; PULSE 72–91; RESP 13–35; O2SAT 94–97; BMI 34.4
--- NOTE | 2023-10-18 13:39 | EKG_ITS ---
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
--- NOTE | 2023-10-18 13:39 | DI.RAD.S_ITS ---
PROCEDURE: XR CHEST 1V INDICATIONS: chest pain TECHNIQUE: One view of the chest was acquired. COMPARISON: [facility], CR, XR CHEST 1V, 08/27/2023, 15:14. FINDINGS: Surgical changes and devices: Right Port-A-Cath. Lungs and pleura: Lungs are clear. No pleural effusions or pneumothorax. Mediastinum: Mediastinal contours appear normal. Heart size is normal. Bones and chest wall: No suspicious bony lesions. Overlying soft tissues appear unremarkable. IMPRESSION: No acute pulmonary process. Dictated by: Aline Vargas M.D. on 10/18/2023 at 14:32 Approved by: Aline Vargas M.D. on 10/18/2023 at 14:32
[2023-10-18 14:07] LABS: Add Manual Diff / Slide Review NO; Basophils Absolute Auto 100 /uL (0-100); Basophils Percent Auto 0.6 % (0-2); Eosinophils Absolute Auto 0 /uL (0-450); Eosinophils Percent Auto 0.1 % (2-4); Hematocrit 31.9 % (36-46); Hemoglobin 10.9 g/dL (12.0-16.0); Lymphocytes Absolute Auto 1400 /uL (1100-4500); Lymphocytes Percent Auto 10.1 % (25-40); Mean Corpuscular HGB Conc 34.3 % (30-36); Mean Corpuscular Hemoglobin 31.2 PG (26-34); Mean Corpuscular Volume 91.1 fL (80-100); Monocytes Absolute Auto 100 /uL (0-900); Monocytes Percent Auto 0.8 % (3-14); Neutrophils Absolute Auto 12000 /uL (1500-7000); Neutrophils Percent Auto 88.4 % (50-75); Platelet Count 120 X10^3/uL (150-400); Red Cell Distribution Width 16.1 % (11.6-14.8); White Blood Cell Count 13.6 X10^3/uL (4.5-11.0)
[2023-10-18 14:14] LABS: Prothrombin Time 11.5 SECONDS (9.4-12.5)
[2023-10-18 14:16] LABS: PTT Partial Thromboplastin Tim 26 SECONDS (25.1-36.5)
[2023-10-18 14:19] LABS: Alanine Aminotransferase 84 IU/L (<35); Albumin 4.4 g/dL (3.5-5.0); Albumin Globulin Ratio 1.6 (1.0-2.8); Alkaline Phosphatase 71 U/L (38-126); Aspartate Aminotransferase 58 IU/L (14-36); BUN Creatinine Ratio 25.4 (6-22); Bilirubin Total 0.8 mg/dL (0.2-1.3); Blood Urea Nitrogen 18 mg/dL (7-17); Calcium 8.4 mg/dL (8.4-10.2); Carbon Dioxide 24 mmol/L (22-32); Chloride 108 mmol/L (98-107); Creatine Kinase 71 U/L (30-135); Estimated Glomerular Filt Rate > 60 mL/min (>60); Globulin 2.7 g/dL (1.7-4.1); Glucose 95 mg/dL (70-100); HEMOLYSIS 15 (0-50); Lipase 93 U/L (23-300); Magnesium 1.9 mg/dL (1.6-2.3); Potassium 3.4 mmol/L (3.4-5.1); Sodium 137 mmol/L (137-145); Total Protein 7.1 g/dL (6.3-8.2)
[2023-10-18 14:30] LABS: NT-proBNP (BNP-Adult 18+) 31 pg/mL (<125); Troponin I < 0.012 ng/mL (0.01-0.034)
--- NOTE | 2023-10-18 17:30 | ED.GENADULT ---
HPI - General Adult General Chief complaint: Syncope Stated complaint: Syncope Time Seen by Provider: 10/18/23 13:59 Source: EMS Mode of arrival: EMS History of Present Illness HPI narrative: 38-year-old woman who underwent chemotherapy on the , to treat her breast cancer. [facility] and had a syncopal episode today that included vomiting as well as loss of bowel and bladder function. This is never happened previously. She has not complaining of chest pain or dyspnea. She has no fevers, cough, abdominal pain, dysuria. She did note that on day 3 through 5 post chemotherapy(she is currently at day 3) she typically feels dizzy and unwell. Related Data Home Medications Medication Instructions Recorded Confirmed dexamethasone 4 mg tablet mg PO 09/07/23 09/07/23 lorazepam 0.5 mg tablet 0.5 mg PO 4XD PRN 09/07/23 09/07/23 ondansetron 8 mg disintegrating 8 mg PO 3XD 09/07/23 09/07/23 tablet prochlorperazine maleate 10 mg 10 mg PO Q6H PRN 09/07/23 09/07/23 tablet Previous Rx's Medication Instructions Recorded labetalol 200 mg tablet 200 mg PO BID #180 tabs 09/07/23 Allergies Allergy/AdvReac Type Severity Reaction Status Date / Time fentanyl AdvReac Severe Hypotension Verified 09/07/23 14:04 Review of Systems Review of Systems Narrative: Pertinent positive and negative findings as per HPI Patient History Medical History 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 GERD (gastroesophageal reflux disease) depression hemorrhage, delivered, current hospitalization (~09/24/22) PPD screening test (~2015) Psoriatic arthritis (~2019) Hypertension Encounter for supervision of other normal , first trimester Viral respiratory illness Surgical History History of gynecologic surgery (09/24/22) History of (09/24/22) History of cervical cerclage (2021) Anesthesia [place] teeth extracted History of ankle surgery (~1997) Family History Mother Hypertension Hyperlipidemia Diabetes mellitus Father Hypertension Hyperlipidemia Grandmother Hypertension CVA (cerebral vascular accident) Grandfather Pancreatitis Social History marital status: number of children: 4 household members: spouse and children lives independently: Yes housing: house pets and animals: No education level: college ([employer] degree) occupational status: employed current occupational exposures/hazards: Yes (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 6 months ago seatbelt use: always water heater temp set < 120 deg: No working smoke detector in home: Yes fire extinguisher in home: Yes carbon monox detector in home: Yes firearms in home: No do you feel safe at home: Yes Smoking Status: Never smoker second hand exposure: No alcohol intake: never substance use type: does not use during the past year weight has: other (Major weight changes up and down with medication changes) well-balanced diet: daily or most days daily servings fruits/ve-4 caffeine: Yes Type(s) of exercise: none Smoking Status: Never smoker alcohol intake frequency: other Substance Use Type: does not use Exam Initial Vital Signs Initial Vital Signs: Vital Signs Pulse Rate 87 10/18/23 13:46 Respiratory Rate 35 H 10/18/23 13:46 Pulse Oximetry 97 10/18/23 13:46 General: Healthy appearing, in no acute distress. Able to give a complete and coherent history. Well-nourished well-developed HEENT: Moist mucous membranes, normal sclera with reactive pupils, Respiratory: Lungs are clear to auscultation, no wheezing no rales no rhonchi. Full and symmetrical air movement Cardiac: Regular rate and rhythm no murmurs no bruits Abdomen: Soft, nontender, good bowel tones, no flank pain Skin: Lips were initially slightly pale and improve nicely after hydration. Skin is otherwise Warm and dry, no rashes Neurologic: Grossly neurologically intact with no obvious asymmetries or abnormalities Extremities: No trauma, well perfused Psych: Cooperative, appropriate insight and affect Course Orders Ordered: ED Orders 10/18/23 13:39 XR chest 1V Stat EKG-12 Lead Stat 10/18/23 13:54 Complete Blood Count AUTO DIFF Stat Comprehensive Metabolic Panel Stat Lipase Stat Magnesium Stat NT-proBNP (BNP-Adult 18+) Stat PTT Partial Thromboplastin Ruben Stat Prothrombin Time INR Stat Troponin & CK Cardiac Panel Stat Discontinued Medications Aspirin (Aspirin 81 Mg Chew Tab) 324 mg PO NOW ONE Stop: 10/18/23 13:39 Last Admin: 10/18/23 14:03 Dose: Not Given Documented By: Vital Signs Vital signs: Vital Signs - 8 hr 10/18/23 13:46 10/18/23 13:50 10/18/23 13:50 Pulse Rate 87 82 Respiratory Rate 35 H 15 Blood Pressure 127/75 Pulse Oximetry 97 97 10/18/23 14:00 10/18/23 14:00 10/18/23 14:30 Pulse Rate 91 H Respiratory Rate 19 Blood Pressure 114/68 124/69 Pulse Oximetry 97 10/18/23 14:30 10/18/23 15:00 10/18/23 15:00 Pulse Rate 75 74 Respiratory Rate 14 14 Blood Pressure 121/67 Pulse Oximetry 95 96 10/18/23 15:30 10/18/23 15:30 10/18/23 16:00 Pulse Rate 74 Respiratory Rate 15 Blood Pressure 122/68 125/72 Pulse Oximetry 95 10/18/23 16:00 10/18/23 16:30 10/18/23 16:30 Pulse Rate 72 78 Respiratory Rate 15 15 Blood Pressure 116/68 Pulse Oximetry 95 95 10/18/23 17:00 10/18/23 17:00 Pulse Rate 82 Respiratory Rate 15 Blood Pressure 116/69 Pulse Oximetry 95 Medical Decision Making Lab Data 10/18/23 13:54 10/18/23 13:54 Labs: Lab Results 10/18/23 Range/Units 13:54 WBC 13.6 H (4.5-11.0) X10^3/uL RBC 3.50 L (4.0-5.2) X10^6/uL Hgb 10.9 L (12.0-16.0) g/dL Hct 31.9 L (36-46) % MCV 91.1 (80-100) fL MCH 31.2 (26-34) PG MCHC 34.3 (30-36) % RDW 16.1 H (11.6-14.8) % Plt Count 120 L (150-400) X10^3/uL Neut % (Auto) 88.4 H (50-75) % Lymph % (Auto) 10.1 L (25-40) % [place] % (Auto) 0.8 L (3-14) % Eos % (Auto) 0.1 L (2-4) % Baso % (Auto) 0.6 (0-2) % Neut # (Auto) 07461 H (1209-2053) /uL Lymph # (Auto) 1400 (2905-0964) /uL [place] # (Auto) 100 (0-900) /uL Eos # (Auto) 0 (0-450) /uL Baso # (Auto) 100 (0-100) /uL PT 11.5 (9.4-12.5) SECONDS INR 1.0 (0.9-1.3) APTT 26 (25.1-36.5) SECONDS Sodium 137 (137-145) mmol/L Potassium 3.4 (3.4-5.1) mmol/L Chloride 108 H (98-107) mmol/L Carbon Dioxide 24 (22-32) mmol/L BUN 18 H (7-17) mg/dL Creatinine 0.71 (0.52-1.04) mg/dL Estimated GFR > 60 (>60) mL/min BUN/Creatinine Ratio 25.4 H (6-22) Glucose 95 (70-100) mg/dL Calcium 8.4 (8.4-10.2) mg/dL Magnesium 1.9 (1.6-2.3) mg/dL Total Bilirubin 0.8 (0.2-1.3) mg/dL AST 58 H (14-36) IU/L ALT 84 H (<35) IU/L Alkaline Phosphatase 71 (38-126) U/L Total Creatine Kinase 71 (30-135) U/L Troponin I < 0.012 (0.01-0.034) ng/mL NT-Pro-B Natriuret Pep 31 (<125) pg/mL Total Protein 7.1 (6.3-8.2) g/dL Albumin 4.4 (3.5-5.0) g/dL Globulin 2.7 (1.7-4.1) g/dL Albumin/Globulin Ratio 1.6 (1.0-2.8) Lipase 93 (23-300) U/L MDM Narrative Medical decision making narrative: CC: Syncope with vomiting, loss of bowel or bladder Complicating co-morbidities: Adjuvant chemotherapy in anticipation of breast surgery, completed around 3 on October 14 and notes that she typically feels the worse on day 3-5, that would be today Data collected from: patient, has been Social determinants of health that may influence the patients condition: Recent breast cancer diagnosis Differential considered: Vasovagal syncope, infection, metastatic disease Exam documented above, pertinent findings include: Patient is examined after the initial L of fluid. Color is good, no evidence of orthostasis. She notes that her heart rate has been slightly elevated throughout her chemotherapy episodes. Lungs are clear belly is soft Lab Test results independently reviewed as above. Pertinent findings: Metabolic panel shows white count at 13.6 with neutrophils at 88.4. Mild anemia at 10.9 and 31.9 that actually seems to be improved from a couple of weeks ago. Chemistries are reassuring. Slight elevation 2 AST at 58 and ALT at 84 Troponin is undetected Independently reviewed EKG: EKG shows sinus rhythm at a rate of 82. No acute ischemic changes Imaging studies independently reviewed: Chest x-ray shows no significant cardiopulmonary abnormalities. Treatments: 2 L of saline Discussion: 38-year-old woman currently day 3 after round 3 of adjuvant chemotherapy for recently diagnosed breast cancer. Syncopal episode while she was at the [facility] prior to any IV start. After a L of fluid she is feeling better. Heart rate is still slightly above 100 and a 2 L of fluid will be administered. No signs of infection, acute coronary syndrome. I do not suspect pulmonary embolism given her normal oxygen saturations, no complaints of dyspnea or chest pain and an alternate explanation (day 3 post chemo) to explain events of today. We discussed additional imaging and workup and with shared decision-making opted to complete 2 L of fluid and have her go home. At this point she has not nauseated, she is asking for dinner which will be arranged and we will encourage her to keep scheduled outpatient follow up. Discharge Plan Departure Patient Disposition: Home Clinical Impression: Orthostatic hypotension Instructions: DI for Orthostatic Hypotension Activity Restrictions/Additional Instructions: Thank you for coming in today I believe that this was a bit of dehydration, a bit of chemotherapy and I did not find any evidence for significant infection or alternate explanation that would require additional workup or imaging today Please do take care of yourself. If you find that you are getting worse, please return to the ER Prescriptions: No Action lorazepam 0.5 mg tablet 0.5 mg PO 4XD PRN dexamethasone 4 mg tablet PO ondansetron 8 mg tablet,disintegrating 8 mg PO 3XD prochlorperazine maleate 10 mg tablet 10 mg PO Q6H PRN labetalol 200 mg tablet 200 mg PO BID Qty: 180 1RF Referrals: Lauri Wen ARNP [Primary Care Provider] - Stand Alone Forms: Patient Portal/API
[2023-10-18] MEDS: SODIUM CHLORIDE 0.9% 1,000 ML 1000 ML IV (18:06)
== END 2023-10-18 19:03 | disposition home or self-care (01) ==
PROVIDERS: Emergency Provider Emergency Medicine; PCP Registered Nurse Diabetes Educator
DX: I95.1 Orthostatic hypotension (principal)
CPT/HCPCS: 71045; 80053; 82550; 83690; 83735; 83880; 84484; 85025; 85610; 85730; 93005; 96360; 99284

== ENCOUNTER 2024-04-04 08:49 | Emergency (ER) | payer OTHER, SELFPAY ==
[2024-04-04 08:53] VITALS: BP 136/83; PULSE 110; O2SAT 100
[2024-04-04 09:00] VITALS: BP 123/72; PULSE 97; O2SAT 95
[2024-04-04 09:08] VITALS: BP 123/72; PULSE 99; RESP 18; TEMP 36.6; O2SAT 96; BMI 37.6
[2024-04-04 09:30] VITALS: BP 133/68; PULSE 97; O2SAT 95
--- NOTE | 2024-04-04 09:33 | ED_ITS ---
HPI - Skin/Abscess/Foreign Bdy General Chief complaint: Skin/Abscess/Foreign Body Stated complaint: poss food stuck in throat Time Seen by Provider: 04/04/24 09:00 Source: patient Mode of arrival: Ambulatory Limitations: no limitations History of Present Illness HPI narrative: Patient has foreign body sensation in the throat. Patient last night at dinner had tacos. Onsted something get caught in her throat. Has been clearing her throat since then. No trouble breathing. No trouble swallowing. Has drank water and fluids since then. Denies does not want a test. No prior surgery on the neck. Related Data Home Medications Medication Instructions Recorded Confirmed dexamethasone 4 mg tablet mg PO 09/07/23 09/07/23 lorazepam 0.5 mg tablet 0.5 mg PO 4XD PRN 09/07/23 09/07/23 ondansetron 8 mg disintegrating 8 mg PO 3XD 09/07/23 09/07/23 tablet prochlorperazine maleate 10 mg 10 mg PO Q6H PRN 09/07/23 09/07/23 tablet Previous Rx's Medication Instructions Recorded labetalol 200 mg tablet 200 mg PO BID #180 tabs 09/07/23 Allergies Allergy/AdvReac Type Severity Reaction Status Date / Time fentanyl AdvReac Severe Hypotension Verified 09/07/23 14:04 Review of Systems Review of Systems Narrative: GENERAL: Negative chills, fatigue, malaise, fever, sweats. 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 GERD (gastroesophageal reflux disease) depression hemorrhage, delivered, current hospitalization (~09/24/22) PPD screening test (~2015) Psoriatic arthritis (~2019) Hypertension Encounter for supervision of other normal , first trimester Viral respiratory illness Surgical History History of gynecologic surgery (09/24/22) History of (09/24/22) History of cervical cerclage (2021) Anesthesia [place] teeth extracted History of ankle surgery (~1997) Family History Mother Hypertension Hyperlipidemia Diabetes mellitus Father Hypertension Hyperlipidemia Grandmother Hypertension CVA (cerebral vascular accident) Grandfather Pancreatitis Social History marital status: number of children: 4 household members: spouse and children lives independently: Yes housing: house pets and animals: No education level: college ([employer] degree) occupational status: employed current occupational exposures/hazards: Yes (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 6 months ago seatbelt use: always water heater temp set < 120 deg: No working smoke detector in home: Yes fire extinguisher in home: Yes carbon monox detector in home: Yes firearms in home: No do you feel safe at home: Yes Smoking Status: Never smoker second hand exposure: No alcohol intake: never substance use type: does not use during the past year weight has: other (Major weight changes up and down with medication changes) well-balanced diet: daily or most days daily servings fruits/ve-4 caffeine: Yes Type(s) of exercise: none Smoking Status: Never smoker alcohol intake frequency: other Exam Narrative Exam Narrative: GENERAL: in no distress, not toxic not dyspneic HEAD: Normocephalic. EYES: Pupils equal round ENT: Mucous membranes moist. No foreign body posterior pharynx and at glottis/epiglottis area NECK: Trachea midline. No midline shift, no stridor. CARDIOVASCULAR: Regular rate and rhythm RESPIRATORY: Clear to auscultation. Breath sounds equal bilaterally. No wheezes, rales, or rhonchi. GASTROINTESTINAL: Abdomen soft, non-tender NEURO: AOx4. SKIN: Warm and dry PSYCH: Not anxious, is cooperative Initial Vital Signs Initial Vital Signs: Vital Signs Pulse Rate 110 H 04/04/24 08:53 Blood Pressure 136/83 04/04/24 08:53 Pulse Oximetry 100 04/04/24 08:53 Course Orders Ordered: ED Orders 04/04/24 09:33 XR soft tissue neck Stat Vital Signs Vital signs: Vital Signs - 8 hr 04/04/24 08:53 04/04/24 08:53 04/04/24 09:00 Temperature Pulse Rate 110 H 97 H Respiratory Rate Blood Pressure 136/83 Pulse Oximetry 100 95 Oxygen Delivery Method 04/04/24 09:00 04/04/24 09:08 04/04/24 09:30 Temperature 97.8 F Pulse Rate 99 H Respiratory Rate 18 Blood Pressure 123/72 123/72 133/68 Pulse Oximetry 96 Oxygen Delivery Method Room Air 04/04/24 09:30 Temperature Pulse Rate 97 H Respiratory Rate Blood Pressure Pulse Oximetry 95 Oxygen Delivery Method MDM - Skin/Abscess/Foreign Bdy Imaging Data X-ray soft tissue neck: Radiologist's Impression: [address] [address] XRay Report Signed Patient: Yesi Akbar MR#: [id number] : 1985 Acct:[id number] Age/Sex: 38 / F Date of Service: 04/04/24 Loc: ED Accession Number: [id number] Procedure: XR soft tissue neck Ordering Provider: Hans Obrien MD PROCEDURE: XR SOFT TISSUE NECK INDICATIONS: Foreign body sensation, hard shell taco TECHNIQUE: 2 views of the neck were acquired. COMPARISON: None. FINDINGS: Airway: The airway appears patent. Soft tissues: Prevertebral soft tissues are normal in thickness. The epiglottis and aryepiglottic folds appear normal. No soft tissue gas. Bones: No suspicious bony lesions. Visualized cervical spine is normally aligned. IMPRESSION: No visualized radiopaque foreign body. Dictated by: Aline Vargas M.D. on 04/04/2024 at 9:48 Approved by: Aline Vargas M.D. on 04/04/2024 at 9:48 [facility] Narrative Medical decision making narrative: Patient has foreign body sensation in the throat. Patient last night at dinner had tacos. Onsted something get caught in her throat. Has been clearing her throat since then. No trouble breathing. No trouble swallowing. Has drank water and fluids since then. Denies does not want a test. No prior surgery on the neck. After history and exam, exam is reassuring. No foreign body seen in the pharynx and at the glottis. X-ray of soft tissue neck appropriate. [facility] Medical records reviewed: No recent visit for this complaint Differential considered: Includes but not limited to foreign body sensation retained foreign body Lab Test results independently reviewed as above. Pertinent findings: None indicated Independently reviewed EKG none indicated Imaging studies independently reviewed: X-ray soft tissue neck no acute finding Consultations: None indicated at this time Treatments: None indicated at this time. Re-evaluations: 10:10 a.m.. Patient in no distress. Reviewed results with patient. Not coughing. No drooling. No trouble breathing. Reviewed results with patient. She agrees likely irritation of the esophagus by the taco last night. Return precautions reviewed. We reviewed with her can take Maalox and see if it can help soothe and coat the esophagus. Return precautions reviewed. She desires discharge home Discussion: Appropriate for discharge home. Exam is reassuring. Airway intact. No drooling. Patient able to swallow/p.o. intake. Return precautions reviewed. She desires discharge home. Diagnosis: Esophageal foreign body sensation Discharge Plan Departure Patient Disposition: Home Clinical Impression: Sensation of foreign body in esophagus Instructions: DI for Foreign Body, Swallowed-Adult Activity Restrictions/Additional Instructions: Your exam and x-ray imaging are reassuring. You may have sensation of foreign body due to possible irritation of the esophagus by the taco meal last night. Return if worse if any questions or concerns if any trouble breathing or swallowing. See family doctor in a week for re-evaluation. Prescriptions: No Action lorazepam 0.5 mg tablet 0.5 mg PO 4XD PRN dexamethasone 4 mg tablet PO ondansetron 8 mg tablet,disintegrating 8 mg PO 3XD prochlorperazine maleate 10 mg tablet 10 mg PO Q6H PRN labetalol 200 mg tablet 200 mg PO BID Qty: 180 1RF Referrals: Lauri Wen ARNP [Primary Care Provider] - Stand Alone Forms: Patient Portal/API/Survey
[2024-04-04 10:00] VITALS: PULSE 95; O2SAT 96
== END 2024-04-04 10:15 | disposition home or self-care (01) ==
PROVIDERS: Emergency Provider Emergency Medicine; PCP Registered Nurse Diabetes Educator
DX: R09.A2 Foreign body sensation, throat (principal)
CPT/HCPCS: 70360; 99283